=== PATIENT | male | born 1955 | race Two or more races ===

== ENCOUNTER 2020-03-31 09:10 | Inpatient (IN) | payer MEDICARE ==
[~2020-03-31] VITALS: Ht 167.6 cm; Wt 66.7 kg
[2020-03-31] MEDS ORDERED: Omnipaque-300 100ml vial INJ ONE (09:30)
--- NOTE | 2020-03-31 09:45 | Emergency Room Report ---
History of Present Illness General Chief Complaint: Abdominal Pain Source: Patient Present Illness HPI Patient Is a 64-year-old male presents for increased abdominal pain. Gradual onset of symptoms. Reports of increased dysuria. Increased pain to the buttock area. Had prior history of rectal cancer. Previous surgical resection of bowel as well as colostomy placement. Patient was noted to have been followed by Dr. Trevor Rothman and was sent in for further evaluation. Patient had normal colored stool through his ostomy. Allergies: Coded Allergies: No Known Allergies (Unverified , 03/31/20) COVID-19 Screening Contact w/high risk pt: No Experienced COVID-19 symptoms?: No COVID-19 Testing performed PROMOTION OFFICER: No Patient History Past Medical History: see triage record Reviewed Nursing Documentation: PMH: Agreed; PSxH: Agreed Nursing Documentation-PMH Hx Gastrointestinal Problems: Yes - Rectal cancer Review of Systems All Other Systems: negative except mentioned in HPI Physical Exam Vital Signs Date Time Temp Pulse Resp B/P (MAP) Pulse Ox O2 Delivery O2 Flow Rate FiO2 03/31/20 09:11 98.2 114 19 112/71 (85) 97 Room Air Sp02 EP Interpretation: reviewed, normal General Appearance: normal inspection, well appearing, no apparent distress, alert, GCS 15, Chronically Ill Head: atraumatic ENT: normal ENT inspection, hearing grossly normal, normal voice Neck: normal inspection, full range of motion, supple, no bony tend Respiratory: normal inspection, lungs clear, normal breath sounds, no respiratory distress, no retraction, no wheezing Cardiovascular #1: regular rate, rhythm, no edema Gastrointestinal: normal inspection, normal bowel sounds, non tender, soft, no guarding, no hernia Rectal: other - large fungating mass to buttock and rectal area approximately size of grapefruit, football shaped Genitourinary: no CVA tenderness Musculoskeletal: normal inspection, back normal, normal range of motion Neurologic: alert, responsive, speech normal, normal inspection Psychiatric: normal inspection, judgement/insight normal, mood/affect normal Medical Decision Making Diagnostic Impression: Primary Impression: Rectal mass Additional Impression: Rectal cancer ER Course Patient presented for abdominal pain. Differential diagnoses included ischemic bowel, appendicitis, perforated viscus, abdominal aortic aneurysm, inferior myocardial infarction, viral gastroenteritis among others.Because patient's complexity imaging studies, and laboratory testing ordered.Patient was noted to have some tachycardia and was given IV fluids as well as pain medications. Laboratory testing showed . Electrolytes were unremarkable. Lipase was normal. White blood count was elevated . I discussed the patient with piano case maker for patient's insurance. Patient will be admitted to Dr. Byers, due to covering physician for Dr. Trevor Castillo. Patient will be admitted for further management of mass. Patient was discussed with Dr. Liang who is covering for Dr. Byers Last Vital Signs Date Time Temp Pulse Resp B/P (MAP) Pulse Ox O2 Delivery O2 Flow Rate FiO2 03/31/20 09:11 98.2 114 19 112/71 (85) 97 Room Air Status: unchanged Disposition: ADMITTED INPATIENT Babar Gauthier MD Mar 31, 2020 09:45
[2020-03-31 10:00] VITALS: BP 120/73
[2020-03-31 10:51] LABS: ANION GAP 8 mmol/L (5-15); BLOOD UREA NITROGEN 17 mg/dL (7-18); CALCIUM 8.7 MG/DL (8.5-10.1); CARBON DIOXIDE 26 MMOL/L (21-32); CHLORIDE 103 MMOL/L (98-107); CREATININE 1.2 MG/DL (0.55-1.30); POTASSIUM 3.5 MMOL/L (3.5-5.1); SODIUM 137 MMOL/L (136-145)
[2020-03-31 10:54] LABS: ALANINE AMINOTRANSFERASE 13 U/L (12-78); ALBUMIN 2.3 G/DL (3.4-5.0); ALBUMIN/GLOBULIN RATIO 0.4 (1.0-2.7); ALKALINE PHOSPHATASE 82 U/L (46-116); ASPARTATE AMINO TRANSFERASE 26 U/L (15-37); BILIRUBIN,TOTAL 0.2 MG/DL (0.2-1.0)
[2020-03-31 11:10] LABS: APPEARANCE,URINE CLEAR; BILIRUBIN, URINE NEGATIVE (NEGATIVE); GLUCOSE, URINE (UA) NEGATIVE (NEGATIVE); KETONES,URINE NEGATIVE (NEGATIVE); LEUKOCYTE ESTERASE ,URINE NEGATIVE (NEGATIVE); NITRITE,URINE NEGATIVE (NEGATIVE); PH,URINE 5 (4.5-8.0); PROTEIN,URINE 1+ (NEGATIVE); UROBILINOGEN,URINE NORMAL MG/DL (0.0-1.0)
[2020-03-31 11:13] LABS: COLOR,URINE YELLOW
[2020-03-31] MEDS ORDERED: Morphine Sulfate 4mg/ml Inj (IV USE ONLY) IVP ONE (12:00)
[2020-03-31 12:24] LABS: BASOPHILS % (AUTO) 0.5 % (0.0-2.0); EOSINOPHILS % (AUTO) 0.5 % (0.0-3.0); HEMATOCRIT 30.4 % (42.0-52.0); LYMPHOCYTES % (AUTO) 16.6 % (20.0-45.0); MEAN CORPUSCULAR VOLUME 89 FL (80-99); MONOCYTES % (AUTO) 8.2 % (1.0-10.0); NEUTROPHILS % (AUTO) 74.3 % (45.0-75.0); PLATELET COUNT 323 K/UL (150-450); RED BLOOD COUNT 3.43 M/UL (4.70-6.10); RED CELL DISTRIBUTION WIDTH 15.6 % (11.6-14.8); WHITE BLOOD COUNT 13.9 K/UL (4.8-10.8)
--- NOTE | 2020-03-31 12:55 | Diagnostic Imaging Report ---
CLINICAL INDICATION:History of rectal carcinoma, shortness of breath, pain TECHNIQUE: The patient was given oral contrast IV administration nonionic contrast. Multiphasic spiral acquisitions obtained through the chest, abdomen, and pelvis. Multiplanar reconstructions were generated. Total dose length product 485 mGycm. CTDIvol(s) one, 72, 3, 5 mGy. Radiation dose was minimized using automated exposure control COMPARISON: 9 FINDINGS Chest: There is a soft tissue mass in the right perihilar region, which measures 6.5 cm transverse by 3.6 cm AP by 2.6 cm craniocaudad. There is a left hilar soft tissue mass which measures 3.6 x 2.4 cm. Numerous nodules are seen scattered through both lungs, largest in the inferior right upper lobe measuring 1.4 cm in diameter. No infiltrates. No effusions. There is mediastinal lymphadenopathy. The largest node is a precarinal node that measures 2.5 x 1.9 cm. The heart size is normal. No pericardial effusion. Unremarkable thyroid. There is a right chest transjugular port catheter. No axillary or chest wall mass or adenopathy demonstrated. Abdomen pelvis: There is a large soft tissue mass involving the anus and extending into the posterior perineum and outside the patient. This demonstrates a central ulceration. This measures 10 cm transverse by 11 cm AP by 13 cm craniocaudad. No definite pelvic adenopathy The cecum and ascending and transverse colon are stool filled. There are a few scattered descending colon diverticula. There is a descending colon diverting colostomy. Some stool is seen in the colon distal to the colostomy. Ingested contrast has traversed nearly the entirety of the small bowel, reaching the terminal ileum. No small bowel distention or small bowel wall thickening. A loop of small bowel is herniated into the stomal defect. There is no infiltration of the surrounding fat, no wall thickening, and no evidence of obstruction related to such. There is a tiny fat-containing left inguinal hernia. The distal esophagus, stomach, duodenum are unremarkable. The liver demonstrates a 6 mm low-attenuation lesion in segment 7 near the dome. No other focal liver lesions are demonstrated. The gallbladder, bile ducts pancreas, spleen, adrenals, kidneys are unremarkable. No retroperitoneal or mesenteric adenopathy. The bones demonstrate degenerative spondylosis changes IMPRESSION: Large exophytic soft tissue mass extending from the anus into the posterior perineum and intergluteal fold. This measures 10 x 11 x 13 cm, should be clinically evident. Most likely related to stated clinical history of rectal carcinoma Evidence of disseminated neoplasm, with multiple lung lesions and mediastinal lymphadenopathy. This most likely represents metastatic rectal carcinoma melanoma although the possibility of a separate pulmonary primary should also be considered Descending colon diverting colostomy noted. There is a nonobstructive parastomal hernia which contains a loop of small bowel. No evidence of bowel obstruction Port catheter noted. 6 mm right lobe liver lesion. This is nonspecific, could represent a small cyst or metastasis Colonic diverticulosis. No evidence of diverticulitis The CT scanner at [facility] is accredited by the [employer] and the scans are performed using protocols designed to limit radiation exposure to as low as reasonably achievable to attain images of sufficient resolution adequate for diagnostic evaluation.
[2020-03-31] MEDS ORDERED: MORPHINE IR15 MG ORAL (14:06)
[2020-03-31] MEDS ORDERED: FIBER0.52 GM PO (14:06)
[2020-03-31 14:20] VITALS: BP 105/60
[2020-03-31] MEDS ORDERED: Miralax 17gm pkt ORAL PRN (15:15)
[2020-03-31] MEDS ORDERED: Zolpidem 5mg tab ORAL PRN (15:15)
[2020-03-31 16:00] VITALS: BP 101/60
[2020-03-31 20:00] VITALS: BP 104/60
[2020-03-31] MEDS: Heparin 5000 units/ml inj SUBQ SCH (21:05)
[2020-04-01] VITALS (18 sets, daily range): BP systolic 104–152; BP diastolic 52–76
[2020-04-01] MEDS: HYDROmorphone 1mg/ml Carpuject IVP PRN (04:47)
[2020-04-01] MEDS: Heparin 5000 units/ml inj SUBQ SCH ×3 (05:35→22:00)
--- NOTE | 2020-04-01 09:08 | Consultation ---
History of Present Illness General Chief Complaint: Abdominal Pain Present Illness Allergies: Coded Allergies: No Known Allergies (Unverified , 03/31/20) Medication History Scheduled PRN Morphine HCl (Morphine Sulfate ER), 5 MG ORAL Q6H PRN for For Pain, (Reported) Miscellaneous Medications Psyllium Husk (Fiber), Unknown Dose PO, (Reported) Patient History Healthcare decision maker Resuscitation status Advanced Directive on File Physical Exam Last 24 Hour Vital Signs Date Time Temp Pulse Resp B/P (MAP) Pulse Ox O2 Delivery O2 Flow Rate FiO2 04/01/20 08:00 97.9 86 17 104/52 (69) 98 04/01/20 04:00 98.1 63 17 129/61 (83) 99 04/01/20 00:00 98.3 76 18 110/64 (79) 97 03/31/20 21:00 Room Air 03/31/20 20:00 98.0 72 19 104/60 (75) 96 03/31/20 19:23 97.9 03/31/20 16:00 97.9 75 18 101/60 (74) 100 03/31/20 15:19 Room Air 03/31/20 14:30 97.7 76 17 112/62 98 Room Air 03/31/20 14:20 97.7 73 18 105/60 (75) 100 03/31/20 12:25 98.2 03/31/20 10:00 98.2 110 18 120/73 99 Room Air 03/31/20 10:00 110 18 Room Air 99 03/31/20 09:11 98.2 114 19 112/71 (85) 97 Room Air Intake and Output 03/31/20 04/01/20 19:00 07:00 Intake Total 0 ml 240 ml Balance 0 ml 240 ml Intake Oral 0 ml 240 ml # Voids 2 2 Laboratory Tests Test 03/31/20 09:38 03/31/20 10:49 03/31/20 12:06 04/01/20 09:00 Prothrombin Time 10.8 SEC (9.30-11.50) Prothromb Time International Ratio 1.0 (0.9-1.1) Activated Partial Thromboplast Time 24 SEC (23-33) Sodium Level 137 MMOL/L (136-145) Potassium Level 3.5 MMOL/L (3.5-5.1) Chloride Level 103 MMOL/L (98-107) Carbon Dioxide Level 26 MMOL/L (21-32) Anion Gap 8 mmol/L (5-15) Blood Urea Nitrogen 17 mg/dL (7-18) Creatinine 1.2 MG/DL (0.55-1.30) Estimat Glomerular Filtration Rate > 60 mL/min (>60) Glucose Level 147 MG/DL (74-106) H Calcium Level 8.7 MG/DL (8.5-10.1) Total Bilirubin 0.2 MG/DL (0.2-1.0) Aspartate Amino Transf (AST/SGOT) 26 U/L (15-37) Alanine Aminotransferase (ALT/SGPT) 13 U/L (12-78) Alkaline Phosphatase 82 U/L (46-116) Troponin I 0.000 ng/mL (0.000-0.056) Total Protein 7.5 G/DL (6.4-8.2) Albumin 2.3 G/DL (3.4-5.0) L Globulin 5.2 g/dL Albumin/Globulin Ratio 0.4 (1.0-2.7) L Lipase 97 U/L (73-393) Urine Color Yellow Urine Appearance Clear Urine pH 5 (4.5-8.0) Urine Specific [place] 1.020 (1.005-1.035) Urine Protein 1+ (NEGATIVE) H Urine Glucose (UA) Negative (NEGATIVE) Urine Ketones Negative (NEGATIVE) Urine Blood Negative (NEGATIVE) Urine Nitrite Negative (NEGATIVE) Urine Bilirubin Negative (NEGATIVE) Urine Urobilinogen Normal MG/DL (0.0-1.0) Urine Leukocyte Esterase Negative (NEGATIVE) Urine RBC 0 /HPF (0 - 0) Urine WBC 0 /HPF (0 - 0) Urine Squamous Epithelial Cells Occasional /LPF Urine Bacteria Occasional /HPF (NONE) Urine Mucus Few /LPF (NONE/OCC) H White Blood Count 13.9 K/UL (4.8-10.8) H Red Blood Count 3.43 M/UL (4.70-6.10) L Hemoglobin 10.0 G/DL (14.2-18.0) L Hematocrit 30.4 % (42.0-52.0) L Mean Corpuscular Volume 89 FL (80-99) Mean Corpuscular Hemoglobin 29.2 PG (27.0-31.0) Mean Corpuscular Hemoglobin Concent 33.0 G/DL (32.0-36.0) Red Cell Distribution Width 15.6 % (11.6-14.8) H Platelet Count 323 K/UL (150-450) Mean Platelet Volume 5.9 FL (6.5-10.1) L Neutrophils (%) (Auto) 74.3 % (45.0-75.0) Lymphocytes (%) (Auto) 16.6 % (20.0-45.0) L Monocytes (%) (Auto) 8.2 % (1.0-10.0) Eosinophils (%) (Auto) 0.5 % (0.0-3.0) Basophils (%) (Auto) 0.5 % (0.0-2.0) Carcinoembryonic Antigen Pending Height (Feet): 5 Height (Inches): 6.00 Weight (Pounds): 153 Medications Current Medications Medications (Trade) Dose Ordered Sig/Eli Route PRN Reason Start Time Stop Time Status Last Admin Dose Admin Acetaminophen (Tylenol) 650 mg Q4H PRN ORAL Mild Pain (Pain Scale 1-3) 03/31/20 15:15 04/30/20 15:14 Acetaminophen (Tylenol) 650 mg Q4H PRN ORAL Temp >100.5 03/31/20 15:15 04/30/20 15:14 Barium Sulfate (Readi-Cat 2) 450 ml NOW PRN ORAL Radiology Procedure 03/31/20 09:30 04/02/20 09:29 03/31/20 09:40 Dextrose (Dextrose 50%) 25 ml Q30M PRN IV Hypoglycemia 03/31/20 15:15 06/29/20 15:14 Dextrose (Dextrose 50%) 50 ml Q30M PRN IV Hypoglycemia 03/31/20 15:15 06/29/20 15:14 Diphenhydramine HCl (Benadryl) 25 mg Q6H PRN ORAL Itching/Pruritis 03/31/20 15:15 04/30/20 15:14 Heparin Sodium (Porcine) (Heparin 5000 units/ml) 5,000 units EVERY 8 HOURS SUBQ 03/31/20 22:00 05/15/20 21:59 04/01/20 05:35 Hydromorphone HCl (Dilaudid) 1 mg Q4H PRN IVP Moderate Pain (Pain Scale 4-6) 03/31/20 15:15 04/07/20 15:14 04/01/20 04:47 Hydromorphone HCl (Dilaudid) 2 mg Q4H PRN IVP Severe Pain (Pain Scale 7-10) 03/31/20 15:15 04/07/20 15:14 03/31/20 18:53 Ondansetron HCl (Zofran) 4 mg Q6H PRN IVP Nausea & Vomiting 03/31/20 15:15 04/30/20 15:14 Polyethylene Glycol (Miralax) 17 gm HSPRN PRN ORAL Constipation 03/31/20 15:15 04/30/20 15:14 Zolpidem Tartrate (Ambien) 5 mg HSPRN PRN ORAL Insomnia 03/31/20 15:15 04/07/20 15:14 Assessment/Plan Assessment/Plan: Oncology Consultation REQ MD: Dayton Mcnally RFC: Rectal cancer DOS: 04/01/2020 ID Patient Is a 64-year-old male presents for increased abdominal pain. Gradual onset of symptoms. Reports of increased dysuria. Increased pain to the buttock area. Had prior history of rectal cancer. Previous surgical resection of bowel as well as colostomy placement. Patient was noted to have been followed by Dr. Trevor Castillo and was sent in for further evaluation. Patient had normal colored stool through his ostomy. CT notes diffuse disease, will be seen by surgeon. Allergies: No Known Allergies (Unverified , 03/31/20) COVID-19 Screening Contact w/high risk pt: No Experienced COVID-19 symptoms?: No COVID-19 Testing performed REVENUE AUDIT CLERK: No Patient History Past Medical History: see triage record Reviewed Nursing Documentation: PMH: Agreed; PSxH: Agreed Nursing Documentation-PMH Hx Gastrointestinal Problems: Yes - Rectal cancer Review of Systems All Other Systems: negative except mentioned in HPI Physical Exam Vitals: reviewed Gen: normal inspection, well appearing, nad, Chronically Ill HEENT: normal inspection, full range of motion, supple, no bony tend Resp: normal inspection, lungs clear, normal breath sounds Cardiovascular: regular rate, rhythm, no edema Gastrointestinal: normal inspection, normal bowel sounds, non tender, soft, ope n colostomy++++ Rectal: other - large fungating mass to buttock and rectal area approximately size of grapefruit, football shaped Genitourinary: no CVA tenderness Musculoskeletal: normal inspection, back normal Neurologic: alert, responsive, speech normal, normal inspection Psychiatric: normal inspection, judgement/insight normal, mood/affect normal Labs: reviewed Imaging: noted Assessment and Recs # Metastatic moderately differentiated adenocarcinoma rectal cancer-- imaging shows Large exophytic soft tissue mass extending from the anus into the posterior perineum and intergluteal fold. This measures 10 x 11 x 13 cm, should be clinically evident. Most likely related to stated clinical history of rectal carcinoma --> biopsy reviewed from 01/21 of rectal mass biopsied at [facility] --> newly evaluated CT shows metastasis --> extremely poor compliance --> will dw pcp and surg --> CEA ordered --> port has been placed --> extremely noncompliant --> biopsy of lymph node in chest --> likely will need palliative chemotherapy if more compliant --> as per surgery eval-> for potential diverting colostomy # Anemia is due likely to iron deficiency --> anemia panel ordered --> transfuse as needed prn basis --> hgb 10 # Descending colon diverting colostomy noted. There is a nonobstructive parastomal hernia which contains a loop of small bowel. No evidence of bowel o bstruction --> per surg # Colonic diverticulosis. No evidence of diverticulitis # Dvt ppx scds Appreciate consultation and Trevor Smith RN, MD Apr 01, 2020 09:08
[2020-04-01] MEDS ORDERED: Sodium Bicarbonate 4% 2.4meq/5ml vial IV PRN ×3 (09:15→16:00)
[2020-04-01] MEDS ORDERED: Lidocaine 1% Plain 30 ml INJ PRN ×3 (09:15→16:00)
--- NOTE | 2020-04-01 09:29 | History and Physical ---
History of Present Illness General Date patient seen: Apr 01, 2020 Reason for Hospitalization: Abdominal Pain Present Illness HPI 64-year-old male presents for increased abdominal pain. Gradual onset of symptoms. Reports of increased dysuria. Increased pain to the buttock area. Has prior history of rectal cancer. Previous surgical resection of bowel as well as colostomy placement. Patient was noted to have been followed by Dr. Trevor Castillo and was sent in for further evaluation. Patient had normal colored stool through his ostomy. CT notes diffuse disease, Vitals stable. Will be admitted for further care. Patient eager to go home. His pain is currently controlled. Allergies: Coded Allergies: No Known Allergies (Unverified , 03/31/20) COVID-19 Screening Contact w/high risk pt: No Experienced COVID-19 symptoms?: No Medication History Scheduled PRN Morphine HCl (Morphine Sulfate ER), 5 MG ORAL Q6H PRN for For Pain, (Reported) Miscellaneous Medications Psyllium Husk (Fiber), Unknown Dose PO, (Reported) Patient History Healthcare decision maker Resuscitation status Advanced Directive on File Review of Systems Constitutional: Denies: no symptoms, see HPI, chills, sweats, fever, malaise, weakness, other Eye: Denies: no symptoms, see HPI, eye pain, blurred vision, tearing, double vision, nose pain, nose congestion, acuity changes, discharge, other ENT: Denies: no symptoms, see HPI, ear pain, ear discharge, nose pain, nose congestion, throat pain, throat swelling, mouth pain, hearing loss, nasal discharge, other Respiratory: Denies: no symptoms, see HPI, cough, orthopnea, shortness of breath, stridor, wheezing, HOLDEN, sputum, other Cardiovascular: Denies: no symptoms, see HPI, chest pain, edema, palpitations, syncope, PND, other Gastrointestinal: Reports: abdominal pain, other - rectal mass Genitourinary: Denies: no symptoms, see HPI, discharge, dysuria, frequency, hematuria, pain, retention, incontinence, urgency, vag bleed/dc, other Musculoskeletal: Denies: no symptoms, see HPI, back pain, gout, joint pain, joint swelling, muscle pain, muscle stiffness, other Skin: Denies: no symptoms, see HPI, rash, change in color, change in hair/nails, dryness, lesions, other Psychiatric: Denies: no symptoms, see HPI, prior hx, anxiety, depressed feelings, emotional problems, SI, HI, hallucinations, other Neurological: Denies: no symptoms, see HPI, headache, numbness, paresthesia, se izure, tingling, tremors, focal weakness, syncope, dizziness, other Endocrine: Denies: no symptoms, see HPI, excessive sweating, flushing, intolerance to temperature, increased thirst, increased urine, unexplained weight loss, other Hematologic/Lymphatic: Denies: no symptoms, see HPI, anemia, blood clots, easy bleeding, easy bruising, swollen glands, diathesis, other Physical Exam General Appearance: no apparent distress Lines, tubes and drains: peripheral HEENT: normocephalic, atraumatic, anicteric Neck: non-tender, supple Respiratory/Chest: chest wall non-tender, lungs clear, normal breath sounds Cardiovascular/Chest: normal peripheral pulses, normal rate, regular rhythm, no JVD Abdomen: non tender, soft Genitourinary/Rectal: other - large fungating grape fruit sieze mass coming out of the rectum Extremities: normal range of motion, non-tender Neurologic: internet sales associate II-XII grossly normal, no motor/sensory deficits Musculoskeletal: normal muscle bulk Last 24 Hour Vital Signs Date Time Temp Pulse Resp B/P (MAP) Pulse Ox O2 Delivery O2 Flow Rate FiO2 04/01/20 08:00 97.9 86 17 104/52 (69) 98 04/01/20 04:00 98.1 63 17 129/61 (83) 99 04/01/20 00:00 98.3 76 18 110/64 (79) 97 03/31/20 21:00 Room Air 03/31/20 20:00 98.0 72 19 104/60 (75) 96 03/31/20 19:23 97.9 03/31/20 16:00 97.9 75 18 101/60 (74) 100 03/31/20 15:19 Room Air 03/31/20 14:30 97.7 76 17 112/62 98 Room Air 03/31/20 14:20 97.7 73 18 105/60 (75) 100 03/31/20 12:25 98.2 03/31/20 10:00 98.2 110 18 120/73 99 Room Air 03/31/20 10:00 110 18 Room Air 99 Intake and Output 03/31/20 04/01/20 19:00 07:00 Intake Total 0 ml 240 ml Balance 0 ml 240 ml Intake Oral 0 ml 240 ml # Voids 2 2 Laboratory Tests Test 03/31/20 09:38 03/31/20 10:49 03/31/20 12:06 04/01/20 09:00 Prothrombin Time 10.8 SEC (9.30-11.50) Prothromb Time International Ratio 1.0 (0.9-1.1) Activated Partial Thromboplast Time 24 SEC (23-33) Sodium Level 137 MMOL/L (136-145) Potassium Level 3.5 MMOL/L (3.5-5.1) Chloride Level 103 MMOL/L (98-107) Carbon Dioxide Level 26 MMOL/L (21-32) Anion Gap 8 mmol/L (5-15) Blood Urea Nitrogen 17 mg/dL (7-18) Creatinine 1.2 MG/DL (0.55-1.30) Estimat Glomerular Filtration Rate > 60 mL/min (>60) Glucose Level 147 MG/DL (74-106) H Calcium Level 8.7 MG/DL (8.5-10.1) Total Bilirubin 0.2 MG/DL (0.2-1.0) Aspartate Amino Transf (AST/SGOT) 26 U/L (15-37) Alanine Aminotransferase (ALT/SGPT) 13 U/L (12-78) Alkaline Phosphatase 82 U/L (46-116) Troponin I 0.000 ng/mL (0.000-0.056) Total Protein 7.5 G/DL (6.4-8.2) Albumin 2.3 G/DL (3.4-5.0) L Globulin 5.2 g/dL Albumin/Globulin Ratio 0.4 (1.0-2.7) L Lipase 97 U/L (73-393) Urine Color Yellow Urine Appearance Clear Urine pH 5 (4.5-8.0) Urine Specific [place] 1.020 (1.005-1.035) Urine Protein 1+ (NEGATIVE) H Urine Glucose (UA) Negative (NEGATIVE) Urine Ketones Negative (NEGATIVE) Urine Blood Negative (NEGATIVE) Urine Nitrite Negative (NEGATIVE) Urine Bilirubin Negative (NEGATIVE) Urine Urobilinogen Normal MG/DL (0.0-1.0) Urine Leukocyte Esterase Negative (NEGATIVE) Urine RBC 0 /HPF (0 - 0) Urine WBC 0 /HPF (0 - 0) Urine Squamous Epithelial Cells Occasional /LPF Urine Bacteria Occasional /HPF (NONE) Urine Mucus Few /LPF (NONE/OCC) H White Blood Count 13.9 K/UL (4.8-10.8) H Red Blood Count 3.43 M/UL (4.70-6.10) L Hemoglobin 10.0 G/DL (14.2-18.0) L Hematocrit 30.4 % (42.0-52.0) L Mean Corpuscular Volume 89 FL (80-99) Mean Corpuscular Hemoglobin 29.2 PG (27.0-31.0) Mean Corpuscular Hemoglobin Concent 33.0 G/DL (32.0-36.0) Red Cell Distribution Width 15.6 % (11.6-14.8) H Platelet Count 323 K/UL (150-450) Mean Platelet Volume 5.9 FL (6.5-10.1) L Neutrophils (%) (Auto) 74.3 % (45.0-75.0) Lymphocytes (%) (Auto) 16.6 % (20.0-45.0) L Monocytes (%) (Auto) 8.2 % (1.0-10.0) Eosinophils (%) (Auto) 0.5 % (0.0-3.0) Basophils (%) (Auto) 0.5 % (0.0-2.0) Carcinoembryonic Antigen Pending Height (Feet): 5 Height (Inches): 6.00 Weight (Pounds): 153 Medications Current Medications Medications (Trade) Dose Ordered Sig/Eli Route PRN Reason Start Time Stop Time Status Last Admin Dose Admin Acetaminophen (Tylenol) 650 mg Q4H PRN ORAL Mild Pain (Pain Scale 1-3) 03/31/20 15:15 04/30/20 15:14 Acetaminophen (Tylenol) 650 mg Q4H PRN ORAL Temp >100.5 03/31/20 15:15 04/30/20 15:14 Barium Sulfate (Readi-Cat 2) 450 ml NOW PRN ORAL Radiology Procedure 03/31/20 09:30 04/02/20 09:29 03/31/20 09:40 Dextrose (Dextrose 50%) 25 ml Q30M PRN IV Hypoglycemia 03/31/20 15:15 06/29/20 15:14 Dextrose (Dextrose 50%) 50 ml Q30M PRN IV Hypoglycemia 03/31/20 15:15 06/29/20 15:14 Diphenhydramine HCl (Benadryl) 25 mg Q6H PRN ORAL Itching/Pruritis 03/31/20 15:15 04/30/20 15:14 Heparin Sodium (Porcine) (Heparin 5000 units/ml) 5,000 units EVERY 8 HOURS SUBQ 03/31/20 22:00 05/15/20 21:59 04/01/20 05:35 Hydromorphone HCl (Dilaudid) 1 mg Q4H PRN IVP Moderate Pain (Pain Scale 4-6) 03/31/20 15:15 04/07/20 15:14 04/01/20 04:47 Hydromorphone HCl (Dilaudid) 2 mg Q4H PRN IVP Severe Pain (Pain Scale 7-10) 03/31/20 15:15 04/07/20 15:14 03/31/20 18:53 Lidocaine HCl (Xylocaine 1% 30ml) 30 ml NOW PRN INJ Radiology Procedure 04/01/20 09:15 04/03/20 09:14 Ondansetron HCl (Zofran) 4 mg Q6H PRN IVP Nausea & Vomiting 03/31/20 15:15 04/30/20 15:14 Polyethylene Glycol (Miralax) 17 gm HSPRN PRN ORAL Constipation 03/31/20 15:15 04/30/20 15:14 Sodium Bicarbonate (Sodium Bicarbonate 4%) 1 ml NOW PRN IV Radiology Procedure 04/01/20 09:15 04/03/20 09:14 Zolpidem Tartrate (Ambien) 5 mg HSPRN PRN ORAL Insomnia 03/31/20 15:15 04/07/20 15:14 Assessment/Plan Status: stable Assessment/Plan: 64 year old male with rectal mass: # Metastatic moderately differentiated adenocarcinoma rectal cancer-- imaging shows Large exophytic soft tissue mass extending from the anus into the posterior perineum and intergluteal fold. This measures 10 x 11 x 13 cm, . Most likely related to stated clinical history of rectal carcinoma biopsy reviewed from 01/21 of rectal mass biopsied at [facility] newly evaluated CT shows metastasis extremely poor compliance Surgical consult: Dr. Santiago: as per surgery eval-> for potential diverting colostomy ONC; Dr. Castellanos CEA ordered biopsy of lymph node in chest likely will need palliative chemotherapy if more compliant #leukocytosis UA negative, no evidence of pna watch off antibiotics # Anemia is due likely to iron deficiency anemia panel ordered transfuse as needed prn basis for Hgb<7 hgb 10 # Descending colon diverting colostomy. There is a nonobstructive parastomal hernia which contains a loop of small bowel. No evidence of bowel obstruction per surg # Colonic diverticulosis. No evidence of diverticulitis dvt ppx; heparin cod status: full code Will Liang M.D. Apr 01, 2020 09:29
[2020-04-01 11:31] LABS: % IRON SATURATION 23 % (15-50); IRON 38 ug/dL (50-175); TOTAL IRON BINDING CAPACITY 163 ug/dL (250-450)
[2020-04-01 11:34] LABS: FERRITIN 434 NG/ML (8-388)
--- NOTE | 2020-04-01 13:52 | Pre-Procedure Note/Attestation ---
Pre-Procedure Note/Attestation Complete Prior to Procedure Planned Procedure: right Procedure Narrative: lung biopsy Indications for Procedure Pre-Operative Diagnosis: lung masses Attestation I attest that I discussed the nature of the procedure; its benefits; risks and complications; and alternatives (and the risks and benefits of such alternatives), prior to the procedure, with the patient (or the patient's legal pharmacy services representative). I attest that, if there was a reasonable possibility of needing a blood transfusion, the patient (or the patient's legal pharmacy services representative) was given the [facility] standardized written summary, pursuant to the [place] Blood Safety Act ([place] Health and Safety Code # 1645, as amended). I attest that I re-evaluated the patient just prior to the surgery and that there has been no change in the patient's H&P, except as documented below: Yaw Metcalf MD Apr 01, 2020 13:52
--- NOTE | 2020-04-01 14:39 | Brief Operative Note ---
Immediate Post Operative Note Operative Note Pre-op Diagnosis: lung masses Procedure: R lung mass bx Post-op Diagnosis: same as pre-op Surgeon: Dharmesh METCALF Anesthesia: local Specimen: yes - 3 20G cores Complications: yes - moderate PTX Fluids: none Implant(s) used?: No Yaw Metcalf MD Apr 01, 2020 14:39
--- NOTE | 2020-04-01 15:47 | Pre-Procedure Note/Attestation ---
Pre-Procedure Note/Attestation Complete Prior to Procedure Planned Procedure: right Procedure Narrative: Chest vent catheter Indications for Procedure Pre-Operative Diagnosis: PTX post biopsy Attestation I attest that I discussed the nature of the procedure; its benefits; risks and complications; and alternatives (and the risks and benefits of such alternatives), prior to the procedure, with the patient (or the patient's legal insurance follow up representative). I attest that, if there was a reasonable possibility of needing a blood transfusion, the patient (or the patient's legal insurance follow up representative) was given the [facility] standardized written summary, pursuant to the [place] Blood Safety Act ([place] Health and Safety Code # 1645, as amended). I attest that I re-evaluated the patient just prior to the surgery and that there has been no change in the patient's H&P, except as documented below: Yaw Metcalf MD Apr 01, 2020 15:47
--- NOTE | 2020-04-01 16:02 | Diagnostic Imaging Report ---
Indication: Cough, status post lung biopsy Technique: One view of the chest Comparison: none Findings: There is an approximately 50% right pneumothorax. There is a right chest port catheter. This a right lung mass, demonstrated on prior CT to be within the middle lobe. The heart size is normal. Impression: 50% right pneumothorax, status post lung biopsy. Referring physicians are aware, patient scheduled for tube placement
--- NOTE | 2020-04-01 16:13 | Brief Operative Note ---
Immediate Post Operative Note Operative Note Pre-op Diagnosis: PTX post biopsy Procedure: R chest vent catheter Post-op Diagnosis: same as pre-op Surgeon: Dharmesh Fregoso Anesthesia: local Specimen: none Complications: none Fluids: none Implant(s) used?: No Yaw Fregoso MD Apr 01, 2020 16:12
--- NOTE | 2020-04-01 16:20 | Consultation ---
History of Present Illness General Date patient seen: Apr 01, 2020 Reason for Hospitalization: Abdominal Pain Present Illness HPI 64M advanced rectal cancer with large fungating tumor noted external and possible mets. surgery called to evaluate and assist with care. Allergies: Coded Allergies: No Known Allergies (Unverified , 03/31/20) COVID-19 Screening Contact w/high risk pt: No Experienced COVID-19 symptoms?: No Medication History Scheduled PRN Morphine HCl (Morphine Sulfate ER), 5 MG ORAL Q6H PRN for For Pain, (Reported) Miscellaneous Medications Psyllium Husk (Fiber), Unknown Dose PO, (Reported) Patient History History Provided By: Patient, Medical Record, PMD Healthcare decision maker Resuscitation status Advanced Directive on File Past Medical/Surgical History Past Medical/Surgical History: (1) Rectal mass Review of Systems Review of Symptoms General ROS: no weight loss or fever Psychological ROS: no depression or mood changes, no memory loss Ophthalmic ROS: no visual changes or eye irritation ENT ROS: no nasal congestion, hearing loss, dizziness Allergy and Immunology ROS: no allergic symptoms or urticaria Hematological and Lymphatic ROS: no swollen glands, unusual bleeding or bruising Endocrine ROS: no polyuria, polydipsia, weight changes, temperature intolerance Respiratory ROS: no cough, shortness of breath, or wheezing Cardiovascular ROS: no chest pain or dyspnea on exertion Gastrointestinal ROS: denies abdominal pain, bright red blood in stool. Musculoskeletal ROS: no myalgias or arthralgias Neurological ROS: no TIA or stroke symptoms Dermatological ROS: no new or changing skin lesions, rashes or pruritis Physical Exam Physical Exam General appearance: alert, cooperative, no distress, appears stated age Head: Normocephalic, without obvious abnormality, atraumatic Eyes: conjunctivae/corneas clear. PERRL, EOM's intact. Fundi benign Throat: Lips, mucosa, and tongue normal. Teeth and gums normal Neck: supple, symmetrical, trachea midline, no adenopathy, thyroid: not enlarged, symmetric, no tenderness/mass/nodules, no carotid bruit and no JVD Lungs: clear to auscultation bilaterally Heart: regular rate and rhythm, S1, S2 normal, no murmur, click, rub or gallop Abdomen: soft, non-tender. Bowel sounds normal. No masses, no organomegaly Extremities: extremities normal, atraumatic, no cyanosis or edema Pulses: 2+ and symmetric Skin: Skin color, texture, turgor normal. No rashes or lesions Neurologic: Grossly normal rectal - large fungating rectal tumor massive and with necrosis Last 24 Hour Vital Signs Date Time Temp Pulse Resp B/P (MAP) Pulse Ox O2 Delivery O2 Flow Rate FiO2 04/01/20 14:24 99 18 120/72 (88) 100 04/01/20 14:19 97 22 117/67 (84) 100 04/01/20 14:14 98 22 115/66 (82) 100 04/01/20 14:09 96 23 109/63 (78) 100 04/01/20 13:33 95 24 04/01/20 12:00 98.6 88 20 115/59 (77) 95 04/01/20 09:00 Room Air 04/01/20 08:00 97.9 86 17 104/52 (69) 98 04/01/20 04:00 98.1 63 17 129/61 (83) 99 04/01/20 00:00 98.3 76 18 110/64 (79) 97 03/31/20 21:00 Room Air 03/31/20 20:00 98.0 72 19 104/60 (75) 96 03/31/20 19:23 97.9 Intake and Output 03/31/20 04/01/20 19:00 07:00 Intake Total 0 ml 240 ml Balance 0 ml 240 ml Intake Oral 0 ml 240 ml # Voids 2 2 Laboratory Tests Test 04/01/20 10:30 Iron Level 38 ug/dL (50-175) L Total Iron Binding Capacity 163 ug/dL (250-450) L Percent Iron Saturation 23 % (15-50) Unsaturated Iron Binding 125 ug/dL (112-346) Ferritin 434 NG/ML (8-388) H Carcinoembryonic Antigen Pending Height (Feet): 5 Height (Inches): 6.00 Weight (Pounds): 153 Medications Current Medications Medications (Trade) Dose Ordered Sig/Eli Route PRN Reason Start Time Stop Time Status Last Admin Dose Admin Acetaminophen (Tylenol) 650 mg Q4H PRN ORAL Mild Pain (Pain Scale 1-3) 03/31/20 15:15 04/30/20 15:14 Acetaminophen (Tylenol) 650 mg Q4H PRN ORAL Temp >100.5 03/31/20 15:15 04/30/20 15:14 Barium Sulfate (Readi-Cat 2) 450 ml NOW PRN ORAL Radiology Procedure 03/31/20 09:30 04/02/20 09:29 03/31/20 09:40 Dextrose (Dextrose 50%) 25 ml Q30M PRN IV Hypoglycemia 03/31/20 15:15 06/29/20 15:14 Dextrose (Dextrose 50%) 50 ml Q30M PRN IV Hypoglycemia 03/31/20 15:15 06/29/20 15:14 Diphenhydramine HCl (Benadryl) 25 mg Q6H PRN ORAL Itching/Pruritis 03/31/20 15:15 04/30/20 15:14 Heparin Sodium (Porcine) (Heparin 5000 units/ml) 5,000 units EVERY 8 HOURS SUBQ 03/31/20 22:00 05/15/20 21:59 04/01/20 05:35 Hydromorphone HCl (Dilaudid) 1 mg Q4H PRN IVP Moderate Pain (Pain Scale 4-6) 03/31/20 15:15 04/07/20 15:14 04/01/20 04:47 Hydromorphone HCl (Dilaudid) 2 mg Q4H PRN IVP Severe Pain (Pain Scale 7-10) 03/31/20 15:15 04/07/20 15:14 03/31/20 18:53 Lidocaine HCl (Xylocaine 1% 30ml) 30 ml NOW PRN INJ Radiology Procedure 04/01/20 10:30 04/03/20 10:29 Lidocaine HCl (Xylocaine 1% 30ml) 30 ml ONCE PRN INJ radiology procedure 04/01/20 16:00 04/03/20 15:59 Ondansetron HCl (Zofran) 4 mg Q6H PRN IVP Nausea & Vomiting 03/31/20 15:15 04/30/20 15:14 Polyethylene Glycol (Miralax) 17 gm HSPRN PRN ORAL Constipation 03/31/20 15:15 04/30/20 15:14 Sodium Bicarbonate (Sodium Bicarbonate 4%) 1 ml NOW PRN IV Radiology Procedure 04/01/20 10:30 04/03/20 10:29 Sodium Bicarbonate (Sodium Bicarbonate 4%) 1 ml ONCE PRN IV radiology procedure 12/4/20 16:00 04/03/20 15:59 Zolpidem Tartrate (Ambien) 5 mg HSPRN PRN ORAL Insomnia 03/31/20 15:15 04/07/20 15:14 Assessment/Plan Problem List: (1) Rectal mass Assessment & Plan: 64M with large fungating rectal mass prior had port placed at [facility] onc input noted will require chemo/radiation not obstructed as can see. tolerating diet discussed with pcp and onc may require diversion if obstructs but if can initiate therapy would be better ct noted ICD Codes: K62.89 - Other specified diseases of anus and rectum SNOMED: [id number] [facility] Hospital declaration \ Abraham Santiago Apr 01, 2020 16:20
--- NOTE | 2020-04-01 17:28 | Diagnostic Imaging Report ---
Indication: Chest masses, history of exophytic rectal mass. Chest biopsy requested to determine if chest lesions are metastatic rectal or primary chest with metastases Technique: Informed consent obtained prior to commencement of the procedure. Risks, including pneumothorax with the possible need for chest tube explained to the patient, indicated his willingness to proceed. Prior imaging studies reviewed. Procedural timeout performed. Localizing CT slices obtained. Intended puncture site sterilely prepped and draped. Localized to large lidocaine. Under CT guidance, a 19-gauge guide needle was directed to the periphery of the target dominant right lung mass. It was attempted not to cross any fissures but nonetheless the needle did end up crossing the major fissure. Total 4 core specimens obtained, sent to pathology for analysis. The patient developed a pneumothorax which subsequently required chest vent placement. Patient otherwise tolerated procedure well Total dose length product 435 mGycm. CTDIvol(s) 4 x 3, 3 x 5 mGy. Radiation dose was minimized using automated exposure control Comparison: Reference made to diagnostic CT scan dated 03/31/2020 Findings: As above Impression: Right lung mass biopsy, as described. Final pathology pending Procedure complicated by pneumothorax requiring chest vent catheter placement The CT scanner at [facility] is accredited by the [employer] and the scans are performed using protocols designed to limit radiation exposure to as low as reasonably achievable to attain images of sufficient resolution adequate for diagnostic evaluation.
--- NOTE | 2020-04-01 17:50 | Diagnostic Imaging Report ---
Indication: Pneumothorax, status post chest tube placement for such Technique: One view of the chest Comparison: 1 1/2 hour earlier Findings: Interim placement of a chest vent catheter in the third intercostal space, tip projected cephalad. Interim resolution of previously demonstrated right pneumothorax. Other findings are unchanged Impression: Resolved right pneumothorax, status thoracic vent catheter placement
--- NOTE | 2020-04-01 17:55 | Diagnostic Imaging Report ---
Indication: Pneumothorax, status post lung biopsy Technique: Informed consent obtained prior to commencement of the procedure. Procedural timeout performed. Localizing bilateral acquisitions obtained through the chest. Skin was sterilely prepped and draped. Local anesthesia 1% lidocaine. At the intended puncture site, a thoracic vent catheter was introduced into the pleural space. The stylette was removed. The pneumothorax was forcibly aspirated. Follow-up CT scan obtained, demonstrating near complete evacuation of the pneumothorax and reexpansion of the right lung. The catheter was subsequently placed to Pleur-evac suction. The patient tolerated the procedure well, without immediate complication. Total dose length product 126 mGycm. CTDIvol(s) 5 mGy. Radiation dose was minimized using automated exposure control Comparison: none Findings: Initial localizing images demonstrate a greater than 50% pneumothorax. Completion images demonstrate satisfactory position of the chest vent catheter, and near complete resolution of the pneumothorax Impression: Successful thoracic vent catheter placement for treatment of postbiopsy pneumothorax The CT scanner at [facility] is accredited by the [employer] and the scans are performed using protocols designed to limit radiation exposure to as low as reasonably achievable to attain images of sufficient resolution adequate for diagnostic evaluation.
[2020-04-02] VITALS: BP 127/68
[2020-04-02 04:40] VITALS: BP 101/60
[2020-04-02] MEDS: Heparin 5000 units/ml inj SUBQ SCH ×3 (06:45→22:55)
[2020-04-02 08:00] VITALS: BP 108/67
[2020-04-02] MEDS ORDERED: Sterile Water Irrig 1000ml IRRIG ONE (08:22)
--- NOTE | 2020-04-02 09:57 | General Progress Note ---
Subjective Date patient seen: Apr 02, 2020 ROS Limited/Unobtainable: No Constitutional: Denies: no symptoms, chills, diaphoresis, fever, malaise, weakness, other HEENT: Denies: no symptoms, eye pain, blurred vision, tearing, double vision, ear pain, ear discharge, nose pain, nose congestion, throat pain, throat swelling, mouth pain, mouth swelling, other Cardiovascular: Denies: no symptoms, chest pain, edema, irregular heart rate, lightheadedness, palpitations, syncope, other Respiratory: Denies: no symptoms, cough, orthopnea, shortness of breath, SOB with excertion, SOB at rest, sputum, stridor, wheezing, other Gastrointestinal/Abdominal: Denies: no symptoms, abdomen distended, abdominal pain, black stools, tarry stools, blood in stool, constipated, diarrhea, difficulty swallowing, nausea, poor appetite, poor fluid intake, rectal bleeding, vomiting, other Genitourinary: Denies: no symptoms, burning, discharge, frequency, flank pain, hematuria, incontinence, pain, urgency, other Neurologic/Psychiatric: Denies: no symptoms, anxiety, depressed, emotional pr oblems, headache, numbness, paresthesia, pre-existing deficit, seizure, tingling, tremors, weakness, other Endocrine: Denies: no symptoms, excessive sweating, flushing, intolerance to cold, intolerance to heat, increased hunger, increased thirst, increased urine, unexplained weight gain, unexplained weight loss, other Hematologic/Lymphatic: Denies: no symptoms, anemia, easy bleeding, easy bruising, other Allergies: Coded Allergies: No Known Allergies (Unverified , 03/31/20) Subjective he is pod#1 s/p ct guided lung biopsy complicated by pneumothorax s/p chest tube placement Objective Last 24 Hour Vital Signs Date Time Temp Pulse Resp B/P (MAP) Pulse Ox O2 Delivery O2 Flow Rate FiO2 04/02/20 08:00 98.3 94 18 108/67 (81) 95 04/02/20 04:40 98.6 88 19 101/60 (74) 97 04/02/20 00:00 98.4 84 19 127/68 (87) 97 04/01/20 21:00 Room Air 04/01/20 20:00 98.9 85 18 115/69 (84) 96 04/01/20 18:15 98.0 75 18 120/65 (83) 100 04/01/20 17:15 98.0 80 18 120/70 (87) 100 04/01/20 17:00 98.2 80 18 115/72 (86) 100 04/01/20 16:45 98.5 75 18 120/72 (88) 100 04/01/20 16:30 98.2 80 18 123/72 (89) 100 04/01/20 15:00 85 18 125/72 (89) 100 04/01/20 14:45 80 18 120/70 (87) 100 04/01/20 14:30 90 18 118/72 (87) 100 04/01/20 14:24 99 18 120/72 (88) 100 04/01/20 14:19 97 22 117/67 (84) 100 04/01/20 14:14 98 22 115/66 (82) 100 04/01/20 14:09 96 23 109/63 (78) 100 04/01/20 13:33 95 24 04/01/20 12:00 98.6 88 20 115/59 (77) 95 Intake and Output 04/01/20 04/02/20 19:00 07:00 Intake Total 300 ml 250 ml Output Total 650 ml Balance 300 ml -400 ml Intake Oral 300 ml 250 ml Output Urine Total 650 ml # Voids 2 3 Laboratory Tests 04/01/20 10:30: Iron Level 38L, Total Iron Binding Capacity 163L, Percent Iron Saturation 23, Unsaturated Iron Binding 125, Ferritin 434H, Carcinoembryonic Antigen [Pending] Height (Feet): 5 Height (Inches): 6.00 Weight (Pounds): 153 General Appearance: no apparent distress EENT: PERRL/EOMI Neck: non-tender, supple Cardiovascular: normal peripheral pulses, normal rate, regular rhythm Respiratory/Chest: chest wall non-tender, lungs clear, other - chest tube in place, R chest wall Abdomen: non tender, soft Genitourinary/Rectal: other - huge rectal mass Extremities: normal range of motion Assessment/Plan Status: stable Assessment/Plan: 64 year old male with rectal mass: # Metastatic moderately differentiated adenocarcinoma rectal cancer-- imaging shows Large exophytic soft tissue mass extending from the anus into the posterior perineum and intergluteal fold. This measures 10 x 11 x 13 cm, . Most likely related to stated clinical history of rectal carcinoma biopsy reviewed from 01/21 of rectal mass biopsied at [facility] newly evaluated CT shows metastasis extremely poor compliance Surgical consult: Dr. Santiago: as per surgery eval-> for potential diverting colostomy ONC; Dr. Castellanos CEA ordered biopsy of lymph node in chest likely will need palliative chemotherapy if more compliant #POD#1 s/p CT guided lung biopsy complicated by pneumothorax chest tube management by Dr. Santiago #leukocytosis UA negative, no evidence of pna watch off antibiotics # Anemia is due likely to iron deficiency anemia panel ordered transfuse as needed prn basis for Hgb<7 hgb 10 # Descending colon diverting colostomy. There is a nonobstructive parastomal hernia which contains a loop of small bowel. No evidence of bowel obstruction per surg # Colonic diverticulosis. No evidence of diverticulitis dvt ppx; heparin cod status: full code Will Liang M.D. Apr 02, 2020 09:57
[2020-04-02 12:00] VITALS: BP 92/62
--- NOTE | 2020-04-02 13:05 | Cardiology Report ---
APPROVED REPORT EKG Measurement Heart [id number] <Conclusion> Sinus tachycardia Otherwise normal ECG
[2020-04-02 15:55] VITALS: BP 106/59
[2020-04-02 20:00] VITALS: BP 113/61
--- NOTE | 2020-04-02 23:07 | Surgery Progress Note ---
Surgery Progress Note Subjective Additional Comments extensive disease ptx after biopsy ct in place on suction no leak Objective Last 24 Hour Vital Signs Date Time Temp Pulse Resp B/P (MAP) Pulse Ox O2 Delivery O2 Flow Rate FiO2 04/02/20 21:00 Room Air 04/02/20 20:00 99.7 79 18 113/61 (78) 97 04/02/20 15:55 98.5 86 17 106/59 (75) 94 04/02/20 12:00 98.7 87 16 92/62 (72) 95 04/02/20 09:00 Room Air 04/02/20 08:00 98.3 94 18 108/67 (81) 95 04/02/20 04:40 98.6 88 19 101/60 (74) 97 04/02/20 00:00 98.4 84 19 127/68 (87) 97 I&O Intake and Output 04/01/20 04/02/20 19:00 07:00 Intake Total 300 ml 250 ml Output Total 650 ml Balance 300 ml -400 ml Intake Oral 300 ml 250 ml Output Urine Total 650 ml # Voids 2 3 Dressing: saturated Cardiovascular: RSR Respiratory: decreased breath sounds Abdomen: non-tender, present bowel sounds Extremities: no cyanosis Plan Problems: (1) Rectal mass Assessment & Plan: Chest: There is a soft tissue mass in the right perihilar region, which measures 6.5 cm transverse by 3.6 cm AP by 2.6 cm craniocaudad. There is a left hilar soft tissue mass which measures 3.6 x 2.4 cm. Numerous nodules are seen scattere d through both lungs, largest in the inferior right upper lobe measuring 1.4 cm in diameter. No infiltrates. No effusions. There is mediastinal lymphadenopathy. The largest node is a precarinal node that measures 2.5 x 1.9 cm. The heart size is normal. No pericardial effusion. Unremarkable thyroid. There is a right chest transjugular port catheter. No axillary or chest wall mass or adenopathy demonstrated. Abdomen pelvis: There is a large soft tissue mass involving the anus and extending into the posterior perineum and outside the patient. This demonstrates a central ulceration. This measures 10 cm transverse by 11 cm AP by 13 cm craniocaudad. No definite pelvic adenopathy The cecum and ascending and transverse colon are stool filled. There are a few scattered descending colon diverticula. There is a descending colon diverting colostomy. Some stool is seen in the colon distal to the colostomy. Ingested contrast has traversed nearly the entirety of the small bowel, reaching the terminal ileum. No small bowel distention or small bowel wall thickening. A loop of small bowel is herniated into the stomal defect. There is no infiltration of the surrounding fat, no wall thickening, and no evidence of obstruction related to such. There is a tiny fat-containing left inguinal hernia. The distal esophagus, stomach, duodenum are unremarkable. The liver demonstrates a 6 mm low-attenuation lesion in segment 7 near the dome. No other focal liver lesions are demonstrated. The gallbladder, bile ducts pancreas, spleen, adrenals, kidneys are unremarkable. No retroperitoneal or mesenteric adenopathy. The bones demonstrate degenerative spondylosis changes IMPRESSION: Large exophytic soft tissue mass extending from the anus into the posterior perineum and intergluteal fold. This measures 10 x 11 x 13 cm, should be clinically evident. Most likely related to stated clinical history of rectal carcinoma Evidence of disseminated neoplasm, with multiple lung lesions and mediastinal lymphadenopathy. This most likely represents metastatic rectal carcinoma melanoma although the possibility of a separate pulmonary primary should also be considered Descending colon diverting colostomy noted. There is a nonobstructive parastomal hernia which contains a loop of small bowel. No evidence of bowel obstruction Port catheter noted. 6 mm right lobe liver lesion. This is nonspecific, could represent a small cyst or metastasis Colonic diverticulosis. No evidence of diverticulitis Abraham Santiago Apr 02, 2020 23:07
[2020-04-02] MEDS: HYDROmorphone 1mg/ml Carpuject IVP PRN (23:14)
[2020-04-03] VITALS: BP 93/48
[2020-04-03 04:00] VITALS: BP 101/53
[2020-04-03] MEDS: Heparin 5000 units/ml inj SUBQ SCH ×3 (05:35→21:34)
[2020-04-03 06:05] LABS: EOSINOPHILS % (AUTO) 2.5 % (0.0-3.0); HEMOGLOBIN 11.1 G/DL (14.2-18.0); LYMPHOCYTES % (AUTO) 15.1 % (20.0-45.0); MEAN CORPUSCULAR VOLUME 89 FL (80-99); MONOCYTES % (AUTO) 6.7 % (1.0-10.0); NEUTROPHILS % (AUTO) 74.7 % (45.0-75.0); PLATELET COUNT 328 K/UL (150-450); RED BLOOD COUNT 3.83 M/UL (4.70-6.10); WHITE BLOOD COUNT 16.4 K/UL (4.8-10.8)
[2020-04-03 06:22] LABS: ANION GAP 5 mmol/L (5-15); BLOOD UREA NITROGEN 11 mg/dL (7-18); CALCIUM 8.9 MG/DL (8.5-10.1); CARBON DIOXIDE 30 MMOL/L (21-32); CHLORIDE 101 MMOL/L (98-107); CREATININE 1.1 MG/DL (0.55-1.30); POTASSIUM 4.4 MMOL/L (3.5-5.1); SODIUM 135 MMOL/L (136-145)
--- NOTE | 2020-04-03 06:47 | Hematology/Onc Progress Note ---
Assessment/Plan Assessment/Plan Assessment and Recs # Metastatic moderately differentiated adenocarcinoma rectal cancer-- imaging shows Large exophytic soft tissue mass extending from the anus into the posterior perineum and intergluteal fold. This measures 10 x 11 x 13 cm, should be clinically evident. Most likely related to stated clinical history of rectal carcinoma --> biopsy reviewed from 01/21 of rectal mass biopsied at [facility] --> newly evaluated CT shows metastasis --> extremely poor compliance --> will dw pcp and surg --> CEA ordered --> port has been placed --> extremely noncompliant --> biopsy of lung 04/01, ct chest tube inserted --> likely will need palliative chemotherapy if more compliant --> as per surgery eval-> for potential diverting colostomy --> also if does not want treatment, consider palliative care # Anemia is due likely to iron deficiency --> anemia panel ordered --> transfuse as needed prn basis --> hgb 10-->11.1 # Pneumothorax s/p biopsy --> s/p chest tube # Descending colon diverting colostomy noted. There is a nonobstructive parastomal hernia which contains a loop of small bowel. No evidence of bowel obstruction --> per surg # Colonic diverticulosis. No evidence of diverticulitis # Dvt ppx scds Appreciate consultation and marin RN Subjective HEENT: Denies: no symptoms, eye pain, blurred vision, tearing, double vision, ear pain, ear discharge, nose pain, nose congestion, throat pain, throat swelling, mouth pain, mouth swelling, other Cardiovascular: Denies: no symptoms, chest pain, edema, irregular heart rate, lightheadedness, palpitations, syncope, other Respiratory: Denies: no symptoms, cough, shortness of breath, SOB with excertion, SOB at rest, sputum, wheezing, other Gastrointestinal/Abdominal: Denies: no symptoms, abdomen distended, abdominal pain, black stools, tarry stools, blood in stool, constipated, diarrhea, diff iculty swallowing, nausea, poor appetite, poor fluid intake, rectal bleeding, vomiting, other Genitourinary: Denies: no symptoms, burning, discharge, frequency, flank pain, hematuria, incontinence, pain, urgency, other Neurologic/Psychiatric: Denies: no symptoms, anxiety, depressed, emotional problems, headache, numbness, paresthesia, pre-existing deficit, seizure, tingling, tremors, weakness, other Endocrine: Denies: no symptoms, excessive sweating, flushing, intolerance to cold, intolerance to heat, increased hunger, increased thirst, increased urine, unexplained weight gain, unexplained weight loss, other Hematologic/Lymphatic: Denies: no symptoms, anemia, easy bleeding, easy bruising, adenopathy, other Allergies: Coded Allergies: No Known Allergies (Unverified , 03/31/20) Subjective 04/03 pod 2 s/p ct guided lung biopsy complicated by pneumothorax s/p chest tube placement Objective Objective Current Medications Medications (Trade) Dose Ordered Sig/Eli Route PRN Reason Start Time Stop Time Status Last Admin Dose Admin Acetaminophen (Tylenol) 650 mg Q4H PRN ORAL Temp >100.5 03/31/20 15:15 04/30/20 15:14 04/03/20 00:30 Acetaminophen (Tylenol) 650 mg Q4H PRN ORAL Mild Pain (Pain Scale 1-3) 03/31/20 15:15 04/30/20 15:14 Dextrose (Dextrose 50%) 25 ml Q30M PRN IV Hypoglycemia 03/31/20 15:15 06/29/20 15:14 Dextrose (Dextrose 50%) 50 ml Q30M PRN IV Hypoglycemia 03/31/20 15:15 06/29/20 15:14 Diphenhydramine HCl (Benadryl) 25 mg Q6H PRN ORAL Itching/Pruritis 03/31/20 15:15 04/30/20 15:14 Heparin Sodium (Porcine) (Heparin 5000 units/ml) 5,000 units EVERY 8 HOURS SUBQ 04/02/20 06:00 05/17/20 05:59 04/03/20 05:35 Hydromorphone HCl (Dilaudid) 1 mg Q4H PRN IVP Moderate Pain (Pain Scale 4-6) 03/31/20 15:15 04/07/20 15:14 04/02/20 23:14 Hydromorphone HCl (Dilaudid) 2 mg Q4H PRN IVP Severe Pain (Pain Scale 7-10) 03/31/20 15:15 04/07/20 15:14 04/02/20 19:09 Lidocaine HCl (Xylocaine 1% 30ml) 30 ml NOW PRN INJ Radiology Procedure 04/01/20 10:30 04/03/20 10:29 Lidocaine HCl (Xylocaine 1% 30ml) 30 ml ONCE PRN INJ radiology procedure 04/01/20 16:00 04/03/20 15:59 Ondansetron HCl (Zofran) 4 mg Q6H PRN IVP Nausea & Vomiting 03/31/20 15:15 04/30/20 15:14 04/01/20 22:35 Polyethylene Glycol (Miralax) 17 gm HSPRN PRN ORAL Constipation 03/31/20 15:15 04/30/20 15:14 Sodium Bicarbonate (Sodium Bicarbonate 4%) 1 ml NOW PRN IV Radiology Procedure 04/01/20 10:30 04/03/20 10:29 Sodium Bicarbonate (Sodium Bicarbonate 4%) 1 ml ONCE PRN IV radiology procedure 04/01/20 16:00 04/03/20 15:59 Zolpidem Tartrate (Ambien) 5 mg HSPRN PRN ORAL Insomnia 03/31/20 15:15 04/07/20 15:14 04/01/20 22:35 Last 24 Hour Vital Signs Date Time Temp Pulse Resp B/P (MAP) Pulse Ox O2 Delivery O2 Flow Rate FiO2 04/03/20 04:00 98.3 82 18 101/53 (69) 92 04/03/20 01:00 98.7 04/03/20 00:00 100.1 90 17 93/48 (63) 92 04/02/20 21:00 Room Air 04/02/20 20:00 99.7 79 18 113/61 (78) 97 04/02/20 15:55 98.5 86 17 106/59 (75) 94 04/02/20 12:00 98.7 87 16 92/62 (72) 95 04/02/20 09:00 Room Air 04/02/20 08:00 98.3 94 18 108/67 (81) 95 04/02/20 04:40 98.6 88 19 101/60 (74) 97 04/02/20 00:00 98.4 84 19 127/68 (87) 97 04/01/20 21:00 Room Air 04/01/20 20:00 98.9 85 18 115/69 (84) 96 04/01/20 18:15 98.0 75 18 120/65 (83) 100 04/01/20 17:15 98.0 80 18 120/70 (87) 100 04/01/20 17:00 98.2 80 18 115/72 (86) 100 04/01/20 16:45 98.5 75 18 120/72 (88) 100 04/01/20 16:30 98.2 80 18 123/72 (89) 100 04/01/20 15:00 85 18 125/72 (89) 100 04/01/20 14:45 80 18 120/70 (87) 100 04/01/20 14:30 90 18 118/72 (87) 100 04/01/20 14:24 99 18 120/72 (88) 100 04/01/20 14:19 97 22 117/67 (84) 100 04/01/20 14:14 98 22 115/66 (82) 100 04/01/20 14:09 96 23 109/63 (78) 100 04/01/20 13:33 95 24 04/01/20 12:00 98.6 88 20 115/59 (77) 95 04/01/20 09:00 Room Air 04/01/20 08:00 97.9 86 17 104/52 (69) 98 Intake and Output 04/02/20 04/03/20 19:00 07:00 Intake Total 900 ml 480 ml Output Total 675 ml 700 ml Balance 225 ml -220 ml Intake Oral 900 ml 480 ml Output Urine Total 675 ml 700 ml # Voids 4 3 Labs Test 03/31/20 09:38 03/31/20 10:49 03/31/20 12:06 04/01/20 10:30 Prothrombin Time 10.8 SEC (9.30-11.50) Prothromb Time International Ratio 1.0 (0.9-1.1) Activated Partial Thromboplast Time 24 SEC (23-33) Sodium Level 137 MMOL/L (136-145) Potassium Level 3.5 MMOL/L (3.5-5.1) Chloride Level 103 MMOL/L (98-107) Carbon Dioxide Level 26 MMOL/L (21-32) Anion Gap 8 mmol/L (5-15) Blood Urea Nitrogen 17 mg/dL (7-18) Creatinine 1.2 MG/DL (0.55-1.30) Estimat Glomerular Filtration Rate > 60 mL/min (>60) Glucose Level 147 MG/DL (74-106) Calcium Level 8.7 MG/DL (8.5-10.1) Total Bilirubin 0.2 MG/DL (0.2-1.0) Aspartate Amino Transf (AST/SGOT) 26 U/L (15-37) Alanine Aminotransferase (ALT/SGPT) 13 U/L (12-78) Alkaline Phosphatase 82 U/L (46-116) Troponin I 0.000 ng/mL (0.000-0.056) Total Protein 7.5 G/DL (6.4-8.2) Albumin 2.3 G/DL (3.4-5.0) Globulin 5.2 g/dL Albumin/Globulin Ratio 0.4 (1.0-2.7) Lipase 97 U/L (73-393) Urine Color Yellow Urine Appearance Clear Urine pH 5 (4.5-8.0) Urine Specific [place] 1.020 (1.005-1.035) Urine Protein 1+ (NEGATIVE) Urine Glucose (UA) Negative (NEGATIVE) Urine Ketones Negative (NEGATIVE) Urine Blood Negative (NEGATIVE) Urine Nitrite Negative (NEGATIVE) Urine Bilirubin Negative (NEGATIVE) Urine Urobilinogen Normal MG/DL (0.0-1.0) Urine Leukocyte Esterase Negative (NEGATIVE) Urine RBC 0 /HPF (0 - 0) Urine WBC 0 /HPF (0 - 0) Urine Squamous Epithelial Cells Occasional /LPF Urine Bacteria Occasional /HPF (NONE) Urine Mucus Few /LPF (NONE/OCC) White Blood Count 13.9 K/UL (4.8-10.8) Red Blood Count 3.43 M/UL (4.70-6.10) Hemoglobin 10.0 G/DL (14.2-18.0) Hematocrit 30.4 % (42.0-52.0) Mean Corpuscular Volume 89 FL (80-99) Mean Corpuscular Hemoglobin 29.2 PG (27.0-31.0) Mean Corpuscular Hemoglobin Concent 33.0 G/DL (32.0-36.0) Red Cell Distribution Width 15.6 % (11.6-14.8) Platelet Count 323 K/UL (150-450) Mean Platelet Volume 5.9 FL (6.5-10.1) Neutrophils (%) (Auto) 74.3 % (45.0-75.0) Lymphocytes (%) (Auto) 16.6 % (20.0-45.0) Monocytes (%) (Auto) 8.2 % (1.0-10.0) Eosinophils (%) (Auto) 0.5 % (0.0-3.0) Basophils (%) (Auto) 0.5 % (0.0-2.0) Iron Level 38 ug/dL (50-175) Total Iron Binding Capacity 163 ug/dL (250-450) Percent Iron Saturation 23 % (15-50) Unsaturated Iron Binding 125 ug/dL (112-346) Ferritin 434 NG/ML (8-388) Test 04/03/20 05:00 White Blood Count 16.4 K/UL (4.8-10.8) Red Blood Count 3.83 M/UL (4.70-6.10) Hemoglobin 11.1 G/DL (14.2-18.0) Hematocrit 34.0 % (42.0-52.0) Mean Corpuscular Volume 89 FL (80-99) Mean Corpuscular Hemoglobin 28.9 PG (27.0-31.0) Mean Corpuscular Hemoglobin Concent 32.6 G/DL (32.0-36.0) Red Cell Distribution Width 16.0 % (11.6-14.8) Platelet Count 328 K/UL (150-450) Mean Platelet Volume 5.5 FL (6.5-10.1) Neutrophils (%) (Auto) 74.7 % (45.0-75.0) Lymphocytes (%) (Auto) 15.1 % (20.0-45.0) Monocytes (%) (Auto) 6.7 % (1.0-10.0) Eosinophils (%) (Auto) 2.5 % (0.0-3.0) Basophils (%) (Auto) 1.0 % (0.0-2.0) Height (Feet): 5 Height (Inches): 6.00 Weight (Pounds): 153 Objective Physical Exam Vitals: reviewed Gen: normal inspection, well appearing, nad, Chronically Ill HEENT: normal inspection, full range of motion, supple, no bony tend Resp: normal inspection, lungs clear, normal breath sounds ++Chest tube Cardiovascular: regular rate, rhythm, no edema Gastrointestinal: normal inspection, normal bowel sounds, non tender, soft, open colostomy++++ Rectal: other - large fungating mass to buttock and rectal area approximately size of grapefruit, football shaped Genitourinary: no CVA tenderness Musculoskeletal: normal inspection, back normal Neurologic: alert, responsive, speech normal, normal inspection Psychiatric: normal inspection, judgement/insight normal Trevor Castillo MD Apr 03, 2020 06:47
[2020-04-03 08:00] VITALS: BP 93/50
[2020-04-03] MEDS: HYDROmorphone 1mg/ml Carpuject IVP PRN ×2 (08:47→14:36)
--- NOTE | 2020-04-03 10:40 | General Progress Note ---
Subjective Date patient seen: Apr 03, 2020 ROS Limited/Unobtainable: No Constitutional: Denies: no symptoms, chills, diaphoresis, fever, malaise, weakness, other HEENT: Denies: no symptoms, eye pain, blurred vision, tearing, double vision, ear pain, ear discharge, nose pain, nose congestion, throat pain, throat swelling, mouth pain, mouth swelling, other Cardiovascular: Denies: no symptoms, chest pain, edema, irregular heart rate, lightheadedness, palpitations, syncope, other Respiratory: Denies: no symptoms, cough, orthopnea, shortness of breath, SOB with excertion, SOB at rest, sputum, stridor, wheezing, other Gastrointestinal/Abdominal: Denies: no symptoms, abdomen distended, abdominal pain, black stools, tarry stools, blood in stool, constipated, diarrhea, difficulty swallowing, nausea, poor appetite, poor fluid intake, rectal bleeding, vomiting, other Genitourinary: Denies: no symptoms, burning, discharge, frequency, flank pain, hematuria, incontinence, pain, urgency, other Neurologic/Psychiatric: Denies: no symptoms, anxiety, depressed, emotional pr oblems, headache, numbness, paresthesia, pre-existing deficit, seizure, tingling, tremors, weakness, other Endocrine: Denies: no symptoms, excessive sweating, flushing, intolerance to cold, intolerance to heat, increased hunger, increased thirst, increased urine, unexplained weight gain, unexplained weight loss, other Hematologic/Lymphatic: Denies: no symptoms, anemia, easy bleeding, easy bruising, other Allergies: Coded Allergies: No Known Allergies (Unverified , 03/31/20) Subjective he is pod#2 s/p ct guided lung biopsy complicated by pneumothorax s/p chest tube placement no acute events AFVSS Objective Last 24 Hour Vital Signs Date Time Temp Pulse Resp B/P (MAP) Pulse Ox O2 Delivery O2 Flow Rate FiO2 04/03/20 08:00 98.1 92 18 93/50 (64) 95 04/03/20 07:39 Room Air 04/03/20 04:00 98.3 82 18 101/53 (69) 92 04/03/20 01:00 98.7 04/03/20 00:00 100.1 90 17 93/48 (63) 92 04/02/20 21:00 Room Air 04/02/20 20:00 99.7 79 18 113/61 (78) 97 04/02/20 15:55 98.5 86 17 106/59 (75) 94 04/02/20 12:00 98.7 87 16 92/62 (72) 95 Intake and Output 04/02/20 04/03/20 19:00 07:00 Intake Total 900 ml 480 ml Output Total 675 ml 700 ml Balance 225 ml -220 ml Intake Oral 900 ml 480 ml Output Urine Total 675 ml 700 ml # Voids 4 3 Laboratory Tests 04/03/20 05:00: White Blood Count 16.4H, Red Blood Count 3.83L, Hemoglobin 11.1L, Hematocrit 34.0L, Mean Corpuscular Volume 89, Mean Corpuscular Hemoglobin 28.9, Mean Corpuscular Hemoglobin Concent 32.6, Red Cell Distribution Width 16.0H, Platelet Count 328, Mean Platelet Volume 5.5L, Neutrophils (%) (Auto) 74.7, Lymphocytes (%) (Auto) 15.1L, Monocytes (%) (Auto) 6.7, Eosinophils (%) (Auto) 2.5, Basophils (%) (Auto) 1.0, Sodium Level 135L, Potassium Level 4.4, Chloride Level 101, Carbon Dioxide Level 30, Anion Gap 5, Blood Urea Nitrogen 11, Creatinine 1.1, Estimat Glomerular Filtration Rate > 60, Glucose Level 99, Calcium Level 8.9 Height (Feet): 5 Height (Inches): 6.00 Weight (Pounds): 153 Objective General Appearance: no apparent distress EENT: PERRL/EOMI Neck: non-tender, supple Cardiovascular: normal peripheral pulses, normal rate, regular rhythm Respiratory/Chest: chest wall non-tender, lungs clear, other - chest tube in place, R chest wall Abdomen: non tender, soft, + colostomy with stool Genitourinary/Rectal: other - huge rectal mass Extremities: normal range of motion Assessment/Plan Status: stable Assessment/Plan: 64 year old male with rectal mass: # Metastatic moderately differentiated adenocarcinoma rectal cancer-- imaging shows Large exophytic soft tissue mass extending from the anus into the posterior perineum and intergluteal fold. This measures 10 x 11 x 13 cm, . Most likely related to stated clinical history of rectal carcinoma biopsy reviewed from 01/21 of rectal mass biopsied at [facility] newly evaluated CT shows metastasis extremely poor compliance Surgical consult: Dr. Santiago: as per surgery eval-> for potential diverting colostomy ONC; Dr. Castellanos CEA ordered biopsy of lymph node in chest- f/u results likely will need palliative chemotherapy if more compliant #POD#2 s/p CT guided lung biopsy complicated by pneumothorax chest tube management by Dr. Santiago follow up results of the biopsy #leukocytosis UA negative, no evidence of pna watch off antibiotics # Anemia is due likely to iron deficiency anemia panel ordered transfuse as needed prn basis for Hgb<7 hgb 10 # Descending colon diverting colostomy. There is a nonobstructive parastomal hernia which contains a loop of small bowel. No evidence of bowel obstruction per surg # Colonic diverticulosis. No evidence of diverticulitis dvt ppx; heparin cod status: full code Will Liang M.D. Apr 03, 2020 10:40
[2020-04-03 11:31] VITALS: BP 102/52
[2020-04-03 16:00] VITALS: BP 97/57
--- NOTE | 2020-04-03 16:11 | Surgery Progress Note ---
Surgery Progress Note Subjective Additional Comments chest tube to water seal doing better respiratory stable tolerating diet Objective Last 24 Hour Vital Signs Date Time Temp Pulse Resp B/P (MAP) Pulse Ox O2 Delivery O2 Flow Rate FiO2 04/03/20 11:31 98.4 83 18 102/52 (69) 95 04/03/20 08:00 98.1 92 18 93/50 (64) 95 04/03/20 07:39 Room Air 04/03/20 04:00 98.3 82 18 101/53 (69) 92 04/03/20 01:00 98.7 04/03/20 00:00 100.1 90 17 93/48 (63) 92 04/02/20 21:00 Room Air 04/02/20 20:00 99.7 79 18 113/61 (78) 97 I&O Intake and Output 04/02/20 04/03/20 19:00 07:00 Intake Total 900 ml 480 ml Output Total 675 ml 700 ml Balance 225 ml -220 ml Intake Oral 900 ml 480 ml Output Urine Total 675 ml 700 ml # Voids 4 3 Cardiovascular: RSR Respiratory: clear, other Abdomen: non-tender, present bowel sounds, non-distended Extremities: no edema, no tenderness, no cyanosis Laboratory Tests Test 04/03/20 05:00 04/03/20 10:40 White Blood Count 16.4 K/UL (4.8-10.8) H Red Blood Count 3.83 M/UL (4.70-6.10) L Hemoglobin 11.1 G/DL (14.2-18.0) L Hematocrit 34.0 % (42.0-52.0) L Mean Corpuscular Volume 89 FL (80-99) Mean Corpuscular Hemoglobin 28.9 PG (27.0-31.0) Mean Corpuscular Hemoglobin Concent 32.6 G/DL (32.0-36.0) Red Cell Distribution Width 16.0 % (11.6-14.8) H Platelet Count 328 K/UL (150-450) Mean Platelet Volume 5.5 FL (6.5-10.1) L Neutrophils (%) (Auto) 74.7 % (45.0-75.0) Lymphocytes (%) (Auto) 15.1 % (20.0-45.0) L Monocytes (%) (Auto) 6.7 % (1.0-10.0) Eosinophils (%) (Auto) 2.5 % (0.0-3.0) Basophils (%) (Auto) 1.0 % (0.0-2.0) Sodium Level 135 MMOL/L (136-145) L Potassium Level 4.4 MMOL/L (3.5-5.1) Chloride Level 101 MMOL/L (98-107) Carbon Dioxide Level 30 MMOL/L (21-32) Anion Gap 5 mmol/L (5-15) Blood Urea Nitrogen 11 mg/dL (7-18) Creatinine 1.1 MG/DL (0.55-1.30) Estimat Glomerular Filtration Rate > 60 mL/min (>60) Glucose Level 99 MG/DL (74-106) Calcium Level 8.9 MG/DL (8.5-10.1) Urine Random Sodium 65 mmol/L (20-110) Plan Problems: (1) Rectal mass Assessment & Plan: 64M with large fungating rectal mass prior had port placed at [facility] onc input noted will require chemo/radiation not obstructed as can see. tolerating diet discussed with pcp and onc may require diversion if obstructs but if can initiate therapy would be better ct to water seal am cxr ct notedChest: There is a soft tissue mass in the right perihilar region, which measures 6.5 cm transverse by 3.6 cm AP by 2.6 cm craniocaudad. There is a left hilar soft tissue mass which measures 3.6 x 2.4 cm. Numerous nodules are seen scattere d through both lungs, largest in the inferior right upper lobe measuring 1.4 cm in diameter. No infiltrates. No effusions. There is mediastinal lymphadenopathy. The largest node is a precarinal node that measures 2.5 x 1.9 cm. The heart size is normal. No pericardial effusion. Unremarkable thyroid. There is a right chest transjugular port catheter. No axillary or chest wall mass or adenopathy demonstrated. Abdomen pelvis: There is a large soft tissue mass involving the anus and extending into the posterior perineum and outside the patient. This demonstrates a central ulceration. This measures 10 cm transverse by 11 cm AP by 13 cm craniocaudad. No definite pelvic adenopathy The cecum and ascending and transverse colon are stool filled. There are a few scattered descending colon diverticula. There is a descending colon diverting colostomy. Some stool is seen in the colon distal to the colostomy. Ingested contrast has traversed nearly the entirety of the small bowel, reaching the terminal ileum. No small bowel distention or small bowel wall thickening. A loop of small bowel is herniated into the stomal defect. There is no infiltration of the surrounding fat, no wall thickening, and no evidence of obstruction related to such. There is a tiny fat-containing left inguinal hernia. The distal esophagus, stomach, duodenum are unremarkable. The liver demonstrates a 6 mm low-attenuation lesion in segment 7 near the dome. No other focal liver lesions are demonstrated. The gallbladder, bile ducts pancreas, spleen, adrenals, kidneys are unremarkable. No retroperitoneal or mesenteric adenopathy. The bones demonstrate degenerative spondylosis changes IMPRESSION: Large exophytic soft tissue mass extending from the anus into the posterior perineum and intergluteal fold. This measures 10 x 11 x 13 cm, should be clinically evident. Most likely related to stated clinical history of rectal carcinoma Evidence of disseminated neoplasm, with multiple lung lesions and mediastinal lymphadenopathy. This most likely represents metastatic rectal carcinoma melanoma although the possibility of a separate pulmonary primary should also be considered Descending colon diverting colostomy noted. There is a nonobstructive parastomal hernia which contains a loop of small bowel. No evidence of bowel obstruction Port catheter noted. 6 mm right lobe liver lesion. This is nonspecific, could represent a small cyst or metastasis Colonic diverticulosis. No evidence of diverticulitis Abraham Santiago Apr 03, 2020 16:11
[2020-04-03 20:00] VITALS: BP 105/50
[2020-04-04] VITALS: BP 113/66
[2020-04-04 04:00] VITALS: BP 108/67
[2020-04-04] MEDS: Heparin 5000 units/ml inj SUBQ SCH ×3 (05:17→21:49)
[2020-04-04 05:50] LABS: BASOPHILS % (AUTO) 0.8 % (0.0-2.0); EOSINOPHILS % (AUTO) 2.7 % (0.0-3.0); HEMATOCRIT 33.2 % (42.0-52.0); HEMOGLOBIN 10.7 G/DL (14.2-18.0); LYMPHOCYTES % (AUTO) 17.6 % (20.0-45.0); MEAN CORPUSCULAR VOLUME 91 FL (80-99); MONOCYTES % (AUTO) 6.2 % (1.0-10.0); NEUTROPHILS % (AUTO) 72.7 % (45.0-75.0); PLATELET COUNT 322 K/UL (150-450); RED BLOOD COUNT 3.65 M/UL (4.70-6.10); RED CELL DISTRIBUTION WIDTH 14.8 % (11.6-14.8); WHITE BLOOD COUNT 12.9 K/UL (4.8-10.8)
[2020-04-04 06:15] LABS: ANION GAP 3 mmol/L (5-15); BLOOD UREA NITROGEN 12 mg/dL (7-18); CALCIUM 8.5 MG/DL (8.5-10.1); CARBON DIOXIDE 29 MMOL/L (21-32); CHLORIDE 100 MMOL/L (98-107); CREATININE 0.9 MG/DL (0.55-1.30); POTASSIUM 4.2 MMOL/L (3.5-5.1); SODIUM 132 MMOL/L (136-145)
[2020-04-04 08:00] VITALS: BP 99/51
--- NOTE | 2020-04-04 08:50 | General Progress Note ---
Subjective Date patient seen: Apr 04, 2020 ROS Limited/Unobtainable: No Constitutional: Reports: other - rectal pain HEENT: Denies: no symptoms, eye pain, blurred vision, tearing, double vision, ear pain, ear discharge, nose pain, nose congestion, throat pain, throat swelling, mouth pain, mouth swelling, other Cardiovascular: Denies: no symptoms, chest pain, edema, irregular heart rate, lightheadedness, palpitations, syncope, other Respiratory: Denies: no symptoms, cough, orthopnea, shortness of breath, SOB with excertion, SOB at rest, sputum, stridor, wheezing, other Gastrointestinal/Abdominal: Denies: no symptoms, abdomen distended, abdominal pain, black stools, tarry stools, blood in stool, constipated, diarrhea, difficulty swallowing, nausea, poor appetite, poor fluid intake, rectal bleeding, vomiting, other Genitourinary: Reports: other - rectal pain Neurologic/Psychiatric: Denies: no symptoms, anxiety, depressed, emotional problems, headache, numbness, paresthesia, pre-existing deficit, seizure, tingling, tremors, weakness, other Endocrine: Denies: no symptoms, excessive sweating, flushing, intolerance to cold, intolerance to heat, increased hunger, increased thirst, increased urine, unexplained weight gain, unexplained weight loss, other Hematologic/Lymphatic: Denies: no symptoms, anemia, easy bleeding, easy bruising, other Allergies: Coded Allergies: No Known Allergies (Unverified , 03/31/20) Subjective he is pod#3 s/p ct guided lung biopsy complicated by pneumothorax s/p chest tube placement no acute events AFVSS pain currently controlled Objective Last 24 Hour Vital Signs Date Time Temp Pulse Resp B/P (MAP) Pulse Ox O2 Delivery O2 Flow Rate FiO2 04/04/20 04:00 98.4 79 19 108/67 (81) 96 04/04/20 00:00 98.7 85 18 113/66 (82) 96 04/03/20 21:00 Room Air 04/03/20 20:00 99.3 83 17 105/50 (68) 96 04/03/20 16:00 98.5 86 18 97/57 (70) 94 04/03/20 11:31 98.4 83 18 102/52 (69) 95 Intake and Output 04/03/20 04/04/20 19:00 07:00 Intake Total 240 ml Output Total 800 ml 600 ml Balance -800 ml -360 ml Intake Oral 240 ml Output Urine Total 800 ml 600 ml # Voids 6 2 Laboratory Tests 04/03/20 10:40: Urine Random Sodium 65 04/04/20 05:35: White Blood Count 12.9H, Red Blood Count 3.65L, Hemoglobin 10.7L, Hematocrit 33.2L, Mean Corpuscular Volume 91, Mean Corpuscular Hemoglobin 29.3, Mean Corpuscular Hemoglobin Concent 32.2, Red Cell Distribution Width 14.8, Platelet Count 322, Mean Platelet Volume 5.6L, Neutrophils (%) (Auto) 72.7, Lymphocytes (%) (Auto) 17.6L, Monocytes (%) (Auto) 6.2, Eosinophils (%) (Auto) 2.7, Basophils (%) (Auto) 0.8, Sodium Level 132L, Potassium Level 4.2, Chloride Level 100, Carbon Dioxide Level 29, Anion Gap 3L, Blood Urea Nitrogen 12, Creatinine 0.9, Estimat Glomerular Filtration Rate > 60, Glucose Level 99, Calcium Level 8.5 Height (Feet): 5 Height (Inches): 6.00 Weight (Pounds): 153 Objective General Appearance: no apparent distress EENT: PERRL/EOMI Neck: non-tender, supple Cardiovascular: normal peripheral pulses, normal rate, regular rhythm Respiratory/Chest: chest wall non-tender, lungs clear, other - chest tube in place, R chest wall Abdomen: non tender, soft, + colostomy with stool Genitourinary/Rectal: other - huge rectal mass Extremities: normal range of motion Assessment/Plan Status: stable Assessment/Plan: 64 year old male with rectal mass: # Metastatic moderately differentiated adenocarcinoma rectal cancer-- imaging shows Large exophytic soft tissue mass extending from the anus into the posterior perineum and intergluteal fold. This measures 10 x 11 x 13 cm, . Most likely related to stated clinical history of rectal carcinoma biopsy reviewed from 01/21 of rectal mass biopsied at [facility] newly evaluated CT shows metastasis extremely poor compliance Surgical consult: Dr. Santiago: as per surgery eval-> for potential diverting colostomy ONC; Dr. Castellanos CEA ordered--> elevated at 5.6 biopsy of lymph node in chest- f/u results- pending likely will need palliative chemotherapy if more compliant #POD#3 s/p CT guided lung biopsy complicated by pneumothorax chest tube management by Dr. Santiago follow up results of the biopsy #leukocytosis UA negative, no evidence of pna watch off antibiotics # Anemia is due likely to iron deficiency anemia panel ordered transfuse as needed prn basis for Hgb<7 hgb 10 # Descending colon diverting colostomy. There is a nonobstructive parastomal hernia which contains a loop of small bowel. No evidence of bowel obstruction per surg #Hyponatremia check urine lytes # Colonic diverticulosis. No evidence of diverticulitis dvt ppx; heparin cod status: full code Will Liang M.D. Apr 04, 2020 08:50
--- NOTE | 2020-04-04 10:23 | Diagnostic Imaging Report ---
Procedure: XRAY Chest 1v Reason for study: Shortness of breath. Comparison films: 04/01/2020. FINDINGS: Right Port-A-Cath and small bore right chest tube remain in place. Vascularity is normal. Slightly improved aeration left midlung. There is a bandlike density in the right midlung perhaps fluid in the fissure. Cardiac and mediastinal silhouette are within normal limits. CP angles are sharp. The bony thorax appear unremarkable. IMPRESSION: Slightly improved aeration left lung.
[2020-04-04 12:00] VITALS: BP 109/66
[2020-04-04] MEDS ORDERED: GABAPENTIN100 MG ORAL (14:11)
[2020-04-04] MEDS ORDERED: NORCO 10-325 T1 EACH ORAL (14:11)
[2020-04-04] MEDS ORDERED: PSYLLIUM HUSK1 GM PO (14:11)
[2020-04-04] MEDS ORDERED: METRONIDAZOLE45 G1 TOPIC (14:11)
[2020-04-04 16:00] VITALS: BP 99/56
--- NOTE | 2020-04-04 17:01 | Surgery Progress Note ---
Surgery Progress Note Subjective Additional Comments improved cxr noted wbc trending down plan ct removal tomorrow Objective Last 24 Hour Vital Signs Date Time Temp Pulse Resp B/P (MAP) Pulse Ox O2 Delivery O2 Flow Rate FiO2 04/04/20 15:03 98.7 04/04/20 12:00 98.7 82 20 109/66 (80) 98 04/04/20 09:00 Room Air 04/04/20 08:00 98.5 98 20 99/51 (67) 96 04/04/20 04:00 98.4 79 19 108/67 (81) 96 04/04/20 00:00 98.7 85 18 113/66 (82) 96 04/03/20 21:00 Room Air 04/03/20 20:00 99.3 83 17 105/50 (68) 96 I&O Intake and Output 04/03/20 04/04/20 19:00 07:00 Intake Total 240 ml Output Total 800 ml 600 ml Balance -800 ml -360 ml Intake Oral 240 ml Output Urine Total 800 ml 600 ml # Voids 6 2 Dressing: dry Cardiovascular: RSR Respiratory: decreased breath sounds Abdomen: non-tender, present bowel sounds Extremities: no edema, no tenderness, no cyanosis Laboratory Tests Test 04/04/20 05:35 04/04/20 12:45 White Blood Count 12.9 K/UL (4.8-10.8) H Red Blood Count 3.65 M/UL (4.70-6.10) L Hemoglobin 10.7 G/DL (14.2-18.0) L Hematocrit 33.2 % (42.0-52.0) L Mean Corpuscular Volume 91 FL (80-99) Mean Corpuscular Hemoglobin 29.3 PG (27.0-31.0) Mean Corpuscular Hemoglobin Concent 32.2 G/DL (32.0-36.0) Red Cell Distribution Width 14.8 % (11.6-14.8) Platelet Count 322 K/UL (150-450) Mean Platelet Volume 5.6 FL (6.5-10.1) L Neutrophils (%) (Auto) 72.7 % (45.0-75.0) Lymphocytes (%) (Auto) 17.6 % (20.0-45.0) L Monocytes (%) (Auto) 6.2 % (1.0-10.0) Eosinophils (%) (Auto) 2.7 % (0.0-3.0) Basophils (%) (Auto) 0.8 % (0.0-2.0) Sodium Level 132 MMOL/L (136-145) L Potassium Level 4.2 MMOL/L (3.5-5.1) Chloride Level 100 MMOL/L (98-107) Carbon Dioxide Level 29 MMOL/L (21-32) Anion Gap 3 mmol/L (5-15) L Blood Urea Nitrogen 12 mg/dL (7-18) Creatinine 0.9 MG/DL (0.55-1.30) Estimat Glomerular Filtration Rate > 60 mL/min (>60) Glucose Level 99 MG/DL (74-106) Calcium Level 8.5 MG/DL (8.5-10.1) Urine Random Sodium 55 mmol/L (20-110) Plan Problems: (1) Rectal mass Assessment & Plan: 64M with large fungating rectal mass prior had port placed at [facility] onc input noted will require chemo/radiation not obstructed as can see. tolerating diet discussed with pcp and onc may require diversion if obstructs but if can initiate therapy would be better ct to water seal am cxr ct notedChest: There is a soft tissue mass in the right perihilar region, which measures 6.5 cm transverse by 3.6 cm AP by 2.6 cm craniocaudad. There is a left hilar soft tissue mass which measures 3.6 x 2.4 cm. Numerous nodules are seen scattered through both lungs, largest in the inferior right upper lobe measuring 1.4 cm in diameter. No infiltrates. No effusions. There is mediastinal lymphadenopathy. The largest node is a precarinal node that measures 2.5 x 1.9 cm. The heart size is normal. No pericardial effusion. Unremarkable thyroid. There is a right chest transjugular port catheter. No axillary or chest wall mass or adenopathy demonstrated. Abdomen pelvis: There is a large soft tissue mass involving the anus and extending into the posterior perineum and outside the patient. This demonstrates a central ulceration. This measures 10 cm transverse by 11 cm AP by 13 cm craniocaudad. No definite pelvic adenopathy The cecum and ascending and transverse colon are stool filled. There are a few scattered descending colon diverticula. There is a descending colon diverting colostomy. Some stool is seen in the colon distal to the colostomy. Ingested contrast has traversed nearly the entirety of the small bowel, reaching the terminal ileum. No small bowel distention or small bowel wall thickening. A loop of small bowel is herniated into the stomal defect. There is no infiltration of the surrounding fat, no wall thickening, and no evidence of obstruction related to such. There is a tiny fat-containing left inguinal hernia. The distal esophagus, stomach, duodenum are unremarkable. The liver demonstrates a 6 mm low-attenuation lesion in segment 7 near the dome. No other focal liver lesions are demonstrated. The gallbladder, bile ducts pancreas, spleen, adrenals, kidneys are unremarkable. No retroperitoneal or mesenteric adenopathy. The bones demonstrate degenerative spondylosis changes IMPRESSION: Large exophytic soft tissue mass extending from the anus into the posterior perineum and intergluteal fold. This measures 10 x 11 x 13 cm, should be clinically evident. Most likely related to stated clinical history of rectal carcinoma Evidence of disseminated neoplasm, with multiple lung lesions and mediastinal lymphadenopathy. This most likely represents metastatic rectal carcinoma melanoma although the possibility of a separate pulmonary primary should also be considered Descending colon diverting colostomy noted. There is a nonobstructive parastomal hernia which contains a loop of small bowel. No evidence of bowel obstruction Port catheter noted. 6 mm right lobe liver lesion. This is nonspecific, could represent a small cyst or metastasis Colonic diverticulosis. No evidence of diverticulitis Abraham Santiago Apr 04, 2020 17:00
[2020-04-04 20:00] VITALS: BP 103/86
[2020-04-05 04:00] VITALS: BP 105/80
[2020-04-05] MEDS: Heparin 5000 units/ml inj SUBQ SCH ×3 (06:00→21:27)
[2020-04-05 06:50] LABS: ANION GAP 5 mmol/L (5-15); BLOOD UREA NITROGEN 12 mg/dL (7-18); CALCIUM 8.1 MG/DL (8.5-10.1); CARBON DIOXIDE 28 MMOL/L (21-32); CHLORIDE 99 MMOL/L (98-107); CREATININE 0.9 MG/DL (0.55-1.30); SODIUM 132 MMOL/L (136-145)
[2020-04-05 08:00] VITALS: BP 116/67
[2020-04-05 12:00] VITALS: BP 111/65
--- NOTE | 2020-04-05 14:45 | Surgery Progress Note ---
Surgery Progress Note Subjective Additional Comments chest tube removed no n/v feels well am cxr Objective Last 24 Hour Vital Signs Date Time Temp Pulse Resp B/P (MAP) Pulse Ox O2 Delivery O2 Flow Rate FiO2 04/05/20 13:54 98.7 04/05/20 12:00 98.8 85 18 111/65 (80) 98 04/05/20 09:31 98.7 04/05/20 09:00 Room Air 04/05/20 08:00 98.8 86 18 116/67 (83) 97 04/05/20 04:00 98.7 76 18 105/80 (88) 97 04/05/20 03:33 99.0 04/04/20 23:35 99.0 04/04/20 22:28 Room Air 04/04/20 20:00 99.0 81 18 103/86 (92) 97 04/04/20 19:20 98.5 04/04/20 16:00 98.5 77 18 99/56 (70) 97 04/04/20 15:03 98.7 I&O Intake and Output 04/04/20 04/05/20 19:00 07:00 Intake Total 650 ml Output Total 600 ml 500 ml Balance 50 ml -500 ml Intake Oral 650 ml Output Urine Total 600 ml 500 ml # Voids 4 3 Dressing: dry Cardiovascular: RSR Respiratory: decreased breath sounds Abdomen: non-tender, present bowel sounds Extremities: no edema, no tenderness, no cyanosis Laboratory Tests Test 04/05/20 04:10 Sodium Level 132 MMOL/L (136-145) L Potassium Level 4.0 MMOL/L (3.5-5.1) Chloride Level 99 MMOL/L (98-107) Carbon Dioxide Level 28 MMOL/L (21-32) Anion Gap 5 mmol/L (5-15) Blood Urea Nitrogen 12 mg/dL (7-18) Creatinine 0.9 MG/DL (0.55-1.30) Estimat Glomerular Filtration Rate > 60 mL/min (>60) Glucose Level 90 MG/DL (74-106) Calcium Level 8.1 MG/DL (8.5-10.1) L Plan Problems: (1) Rectal mass Assessment & Plan: 64M with large fungating rectal mass prior had port placed at [facility] onc input noted will require chemo/radiation not obstructed as can see. tolerating diet discussed with pcp and onc may require diversion if obstructs but if can initiate therapy would be better ct to water seal am cxr chest tube out 12/[address] notedChest: There is a soft tissue mass in the right perihilar region, which measures 6.5 cm transverse by 3.6 cm AP by 2.6 cm craniocaudad. There is a left hilar soft tissue mass which measures 3.6 x 2.4 cm. Numerous nodules are seen scattered through both lungs, largest in the inferior right upper lobe measuring 1.4 cm in diameter. No infiltrates. No effusions. There is mediastinal lymphadenopathy. The largest node is a precarinal node that measures 2.5 x 1.9 cm. The heart size is normal. No pericardial effusion. Unremarkable thyroid. There is a right chest transjugular port catheter. No axillary or chest wall mass or adenopathy demonstrated. Abdomen pelvis: There is a large soft tissue mass involving the anus and extending into the posterior perineum and outside the patient. This demonstrates a central ulceration. This measures 10 cm transverse by 11 cm AP by 13 cm craniocaudad. No definite pelvic adenopathy The cecum and ascending and transverse colon are stool filled. There are a few scattered descending colon diverticula. There is a descending colon diverting colostomy. Some stool is seen in the colon distal to the colostomy. Ingested contrast has traversed nearly the entirety of the small bowel, reaching the terminal ileum. No small bowel distention or small bowel wall thickening. A loop of small bowel is herniated into the stomal defect. There is no infiltration of the surrounding fat, no wall thickening, and no evidence of obstruction related to such. There is a tiny fat-containing left inguinal hernia. The distal esophagus, stomach, duodenum are unremarkable. The liver demonstrates a 6 mm low-attenuation lesion in segment 7 near the dome. No other focal liver lesions are demonstrated. The gallbladder, bile ducts pancreas, spleen, adrenals, kidneys are unremarkable. No retroperitoneal or mesenteric adenopathy. The bones demonstrate degenerative spondylosis changes IMPRESSION: Large exophytic soft tissue mass extending from the anus into the posterior perineum and intergluteal fold. This measures 10 x 11 x 13 cm, should be clinically evident. Most likely related to stated clinical history of rectal carcinoma Evidence of disseminated neoplasm, with multiple lung lesions and mediastinal lymphadenopathy. This most likely represents metastatic rectal carcinoma melanoma although the possibility of a separate pulmonary primary should also be considered Descending colon diverting colostomy noted. There is a nonobstructive parastomal hernia which contains a loop of small bowel. No evidence of bowel obstruction Port catheter noted. 6 mm right lobe liver lesion. This is nonspecific, could represent a small cyst or metastasis Colonic diverticulosis. No evidence of diverticulitis Abraham Santiago Apr 05, 2020 14:45
--- NOTE | 2020-04-05 15:57 | General Progress Note ---
Subjective Date patient seen: Apr 05, 2020 Time patient seen: 10:53 Constitutional: Denies: no symptoms, chills, diaphoresis, fever, malaise, weakness, other HEENT: Denies: no symptoms, eye pain, blurred vision, tearing, double vision, ear pain, ear discharge, nose pain, nose congestion, throat pain, throat swelling, mouth pain, mouth swelling, other Cardiovascular: Denies: no symptoms, chest pain, edema, irregular heart rate, lightheadedness, palpitations, syncope, other Respiratory: Denies: no symptoms, cough, orthopnea, shortness of breath, SOB with excertion, SOB at rest, sputum, stridor, wheezing, other Gastrointestinal/Abdominal: Denies: no symptoms, abdomen distended, abdominal pain, black stools, tarry stools, blood in stool, constipated, diarrhea, difficulty swallowing, nausea, poor appetite, poor fluid intake, rectal bleeding, vomiting, other Genitourinary: Denies: no symptoms, burning, discharge, frequency, flank pain, hematuria, incontinence, pain, urgency, other Neurologic/Psychiatric: Denies: no symptoms, anxiety, depressed, emotional problems, headache, numbness, paresthesia, pre-existing deficit, seizure, tingling, tremors, weakness, other Endocrine: Denies: no symptoms, excessive sweating, flushing, intolerance to cold, intolerance to heat, increased hunger, increased thirst, increased urine, unexplained weight gain, unexplained weight loss, other Hematologic/Lymphatic: Denies: no symptoms, anemia, easy bleeding, easy bruising, other Allergies: Coded Allergies: No Known Allergies (Unverified , 03/31/20) Subjective POD #4, CT Removed this AM Comfortable on RA No complaints of n/v or respiratory distress Objective Last 24 Hour Vital Signs Date Time Temp Pulse Resp B/P (MAP) Pulse Ox O2 Delivery O2 Flow Rate FiO2 04/05/20 13:54 98.7 04/05/20 12:00 98.8 85 18 111/65 (80) 98 04/05/20 09:31 98.7 04/05/20 09:00 Room Air 04/05/20 08:00 98.8 86 18 116/67 (83) 97 04/05/20 04:00 98.7 76 18 105/80 (88) 97 04/05/20 03:33 99.0 12/7/20 23:35 99.0 04/04/20 22:28 Room Air 04/04/20 20:00 99.0 81 18 103/86 (92) 97 04/04/20 19:20 98.5 04/04/20 16:00 98.5 77 18 99/56 (70) 97 Intake and Output 04/04/20 04/05/20 19:00 07:00 Intake Total 650 ml Output Total 600 ml 500 ml Balance 50 ml -500 ml Intake Oral 650 ml Output Urine Total 600 ml 500 ml # Voids 4 3 Laboratory Tests 04/05/20 04:10: Sodium Level 132L, Potassium Level 4.0, Chloride Level 99, Carbon Dioxide Level 28, Anion Gap 5, Blood Urea Nitrogen 12, Creatinine 0.9, Estimat Glomerular Filtration Rate > 60, Glucose Level 90, Calcium Level 8.1L Height (Feet): 5 Height (Inches): 6.00 Weight (Pounds): 153 General Appearance: WD/WN, no apparent distress EENT: PERRL/EOMI Neck: supple Cardiovascular: normal rate, regular rhythm Respiratory/Chest: no respiratory distress Abdomen: non tender, soft Extremities: normal range of motion Edema: no edema noted Arm (L), no edema noted Arm (R), no edema noted Leg (L), no edema noted Leg (R), no edema noted Pedal (L), no edema noted Pedal (R), no edema noted Generalized Neurologic: setter machine II-XII grossly normal Skin: warm/dry Assessment/Plan Status: stable Assessment/Plan: 64 year old male with rectal mass: #Metastatic moderately differentiated adenocarcinoma rectal cancer - Imaging shows Large exophytic soft tissue mass extending from the anus into the posterior perineum and intergluteal fold. This measures 10 x 11 x 13 cm. Most likely related to stated clinical history of rectal carcinoma - biopsy reviewed from 01/21 of rectal mass biopsied at [facility] - newly evaluated CT shows metastasis - extremely poor compliance - Surgical consult: Dr. Santiago: as per surgery eval-> for potential diverting colostomy - ONC; Dr. Castellanos - CEA ordered--> elevated at 5.6 - biopsy of lymph node in chest - Metastatic Adenocarcinoma - likely will need palliative chemotherapy if more compliant #POD#4 s/p CT guided lung biopsy complicated by pneumothorax - CT discontinued 04/05 - Stable on RA #leukocytosis UA negative, no evidence of pna watch off antibiotics # Anemia is due likely to iron deficiency anemia panel ordered transfuse as needed prn basis for Hgb<7 hgb 10 # Descending colon diverting colostomy - There is a nonobstructive parastomal hernia which contains a loop of small bowel. No evidence of bowel obstruction per surg #Hyponatremia - check urine lytes # Colonic diverticulosis - No evidence of diverticulitis Time spent 35 minutes with 18 minutes spent with counseling and care coordination. D/w nursing. Time of visit does not reflect time of encounter. Breana Seay M.D. Apr 05, 2020 15:57
[2020-04-05 16:00] VITALS: BP 110/63
[2020-04-05 20:00] VITALS: BP 107/63
[2020-04-06 04:00] VITALS: BP 114/78
[2020-04-06] MEDS: Heparin 5000 units/ml inj SUBQ SCH ×2 (05:32→14:00)
[2020-04-06 08:00] VITALS: BP 107/62
[2020-04-06 12:00] VITALS: BP 107/66
--- NOTE | 2020-04-06 16:57 | Diagnostic Imaging Report ---
Indication: Shortness of breath Technique: Single AP view of the chest. Comparison: Chest radiograph dated 04/04/2020 Findings: The cardiomediastinal silhouette is unchanged in appearance. Redemonstration of right midlung opacity. Slight increasing left midlung opacity. No new airspace consolidation. No pneumothorax. No increasing pleural effusion. Unchanged right-sided infusion port. IMPRESSION: Increasing left midlung opacity, which could reflect worsening atelectasis but pneumonia should be excluded clinically.
--- NOTE | 2020-04-06 17:33 | Surgery Progress Note ---
Surgery Progress Note Subjective Additional Comments doing well since chest tube out wants to go home no n/v has home clothes on ready for d/c Objective Last 24 Hour Vital Signs Date Time Temp Pulse Resp B/P (MAP) Pulse Ox O2 Delivery O2 Flow Rate FiO2 04/06/20 12:00 99.1 99 18 107/66 (80) 96 04/06/20 09:00 Room Air 04/06/20 08:00 98.5 94 18 107/62 (77) 96 04/06/20 04:00 98.7 84 18 114/78 (90) 96 04/05/20 21:00 Room Air 04/05/20 20:00 99.2 87 18 107/63 (78) 96 04/05/20 18:02 99.0 I&O Intake and Output 04/05/20 04/06/20 19:00 07:00 Intake Total 1200 ml 280 ml Output Total 800 ml 900 ml Balance 400 ml -620 ml Intake Oral 1200 ml 280 ml Output Urine Total 800 ml 900 ml # Voids 4 5 Dressing: dry Cardiovascular: RSR Respiratory: clear Abdomen: non-tender, present bowel sounds, non-distended Extremities: no edema, no tenderness, no cyanosis Plan Problems: (1) Rectal mass Assessment & Plan: 64M with large fungating rectal mass prior had port placed at the [facility] onc input noted will require chemo/radiation not obstructed as can see. tolerating diet discussed with pcp and onc may require diversion if obstructs but if can initiate therapy would be better ct to water seal am cxr chest tube out 12/8 am cxr doing well with tube out d/c planning ct notedChest: There is a soft tissue mass in the right perihilar region, which measures 6.5 cm transverse by 3.6 cm AP by 2.6 cm craniocaudad. There is a left hilar soft tissue mass which measures 3.6 x 2.4 cm. Numerous nodules are seen scattered through both lungs, largest in the inferior right upper lobe measuring 1.4 cm in diameter. No infiltrates. No effusions. There is mediastinal lymphadenopathy. The largest node is a precarinal node that measures 2.5 x 1.9 cm. The heart size is normal. No pericardial effusion. Unremarkable thyroid. There is a right chest transjugular port catheter. No axillary or chest wall mass or adeno luis demonstrated. Abdomen pelvis: There is a large soft tissue mass involving the anus and extending into the posterior perineum and outside the patient. This demonstrates a central ulceration. This measures 10 cm transverse by 11 cm AP by 13 cm craniocaudad. No definite pelvic adenopathy The cecum and ascending and transverse colon are stool filled. There are a few scattered descending colon diverticula. There is a descending colon diverting colostomy. Some stool is seen in the colon distal to the colostomy. Ingested contrast has traversed nearly the entirety of the small bowel, reaching the terminal ileum. No small bowel distention or small bowel wall thickening. A loop of small bowel is herniated into the stomal defect. There is no infiltration of the surrounding fat, no wall thickening, and no evidence of obstruction related to such. There is a tiny fat-containing left inguinal hernia. The distal esophagus, stomach, duodenum are unremarkable. The liver demonstrates a 6 mm low-attenuation lesion in segment 7 near the dome. No other focal liver lesions are demonstrated. The gallbladder, bile ducts pa ncreas, spleen, adrenals, kidneys are unremarkable. No retroperitoneal or mesenteric adenopathy. The bones demonstrate degenerative spondylosis changes IMPRESSION: Large exophytic soft tissue mass extending from the anus into the posterior perineum and intergluteal fold. This measures 10 x 11 x 13 cm, should be clinically evident. Most likely related to stated clinical history of rectal carcinoma Evidence of disseminated neoplasm, with multiple lung lesions and mediastinal lymphadenopathy. This most likely represents metastatic rectal carcinoma melanoma although the possibility of a separate pulmonary primary should also be considered Descending colon diverting colostomy noted. There is a nonobstructive parastomal hernia which contains a loop of small bowel. No evidence of bowel obstruction Port catheter noted. 6 mm right lobe liver lesion. This is nonspecific, could represent a small cyst or metastasis Colonic diverticulosis. No evidence of diverticulitis Abraham Santiago Apr 06, 2020 17:33
--- NOTE | 2020-04-09 21:39 | Discharge Summary ---
Discharge Summary Hospital Course Date of Admission Mar 31, 2020 at 13:00 Date of Discharge Apr 06, 2020 at 16:00 Admitting Diagnosis rectal mass HPI Pipo Katz is a 64 year old male who was admitted on Mar 31, 2020 at 13:00 for Rectal Mass Hospital Course PHYSICAL EXAM: General: Resting in bed comfortable HEENT: EOMI Cardiac:regular rate and rhythm Lungs: CTABL Abdomen: non-tender, colostomy in place Extremities: normal ROM Neuro: Alert, AAOx3 Patient presented with large expophytic soft tissue mass from the anus to the posterior perinum and intergluteal fold that was related to history of rectal carcinoma. Previous biopsy was performed 01/21 at [facility]. CT scan on this admission was indicative of metastsis. A Biopsy was performed of the lung that was unfortunately complicated by a pneumothorax. Patient had a chest tube placed and subsequently removed with resolution of pneumothorax. He was also evaluated by surgery for possible diverting colostomy. Given patient's condition was stable and there was no bowel obstruction, diverting colostomy was not performed at this time. He was followed closely by oncology and surgery. He will have follow up evaluation with oncology with likely palliative chemo/tx given progression of his oncologic disease. Discharge Discharge Vital Signs Last Vital Signs Date Time Temp Pulse Resp B/P (MAP) Pulse Ox O2 Delivery O2 Flow Rate FiO2 04/06/20 12:00 99.1 99 18 107/66 (80) 96 04/06/20 09:00 Room Air 03/31/20 10:00 99 Discharge Disposition Patient was discharged to Breana Seay M.D. Apr 09, 2020 21:39
== END 2020-04-06 16:00 | disposition home or self-care (01) | DRG 375 ==
LOC: EMR 09:40 → 3E 13:00 → EDBEDREQ 13:56 → 3E 04-01 11:58
PROC: 0W9930Z Drainage of Right Pleural Cavity with Drainage Device, Percutaneous Approach (ICD-10-PCS; principal; 2020-04-01)
PROC: 0BBK3ZX Excision of Right Lung, Percutaneous Approach, Diagnostic (ICD-10-PCS; principal; 2020-04-01)
DX: C78.5 Secondary malignant neoplasm of large intestine and rectum (principal); E87.1 Hypo-osmolality and hyponatremia; J95.811 Postprocedural pneumothorax; D64.9 Anemia, unspecified; K57.90 Diverticulosis of intestine, part unspecified, without perforation or abscess without bleeding; D50.9 Iron deficiency anemia, unspecified; Z93.3 Colostomy status; K76.9 Liver disease, unspecified; K43.5 Parastomal hernia without obstruction or gangrene; Y84.8 Other medical procedures as the cause of abnormal reaction of the patient, or of later complication, without mention of misadventure at the time of the procedure; Y92.238 Other place in hospital as the place of occurrence of the external cause
CPT/HCPCS: 36415; 71045; 71260; 74177; 75989; 77012; 80048; 80053; 81003; 82378; 82728; 83540; 83550; 83690; 84300; 84484; 85025; 85610; 85730; 86850; 86900; 86901; 93005; 96361; 96374; 99285; J2405